=== PATIENT | female | born 1985 | race Caucasian/White ===

== ENCOUNTER → 2022-04-29 10:28 | Outpatient (CLI) | payer OTHER, SELFPAY ==
[2022-04-29 11:27] LABS: Basophils % 0.9 % (0.1-2.0); Eosinophils # 0.2 K/mm3 (0.0-0.4); Hematocrit 37.2 % (37.0-47.0); Hemoglobin 12.5 g/dL (12.2-16.2); Lymphocytes % 42.1 % (10-50); Mean Corpuscular HGB Conc 33.6 g/dL (31.8-35.4); Mean Corpuscular Hemoglobin 29.6 pg (27.0-31.2); Mean Platelet Volume 10.1 fl (7.4-10.4); Monocytes # 0.3 K/mm3 (0.1-1.0); Monocytes % 6.5 % (1.7-9.3); Neutrophils # 2.2 K/mm3 (1.8-7.8); Neutrophils % 46.5 % (37.0-80.0); Platelet Count 207 K/mm3 (142-424); Red Blood Count 4.23 M/mm3 (4.20-5.40); White Blood Count 4.7 K/mm3 (4.8-10.8)
[2022-04-29 12:31] LABS: Alanine Aminotransferase 14 U/L (12-78); Albumin Level 4.2 g/dl (3.5-5.0); Albumin/Globulin Ratio 1.7 (1.1-1.8); Alkaline Phosphatase 66 U/L (38-126); Anion Gap 10.3 mEq/L (5-15); Aspartate Amino Transferase 21 U/L (14-36); Bilirubin,Total 0.5 mg/dl (0.2-1.3); Blood Urea Nitrogen 9 mg/dl (7-17); Calcium 8.5 mg/dl (8.4-10.2); Carbon Dioxide 25 mmol/L (22.0-30.0); Chloride 108 mmol/L (98-107); Estimated Glomerular Filt Rate 112 ml/min (>60); GFR (African American) 136 ML/MIN (>60); Globulin 2.5 g/dL (1.3-3.2); Glucose 80 mg/dl (74-100); Potassium 3.3 mmoL/L (3.5-5.1); Sodium 140 mmol/L (136-145); Total Protein,Serum 6.7 g/dl (6.3-8.2)
[2022-04-29 12:48] LABS: HCG,Quantitative < 2 mIU/ml (0-5.42)
== END ==
LOC: LAB 10:29
PROVIDERS: PCP Pediatrics; Visit Provider Obstetrics & Gynecology
DX: Z01.812 Encounter for preprocedural laboratory examination (principal); N94.6 Dysmenorrhea, unspecified
CPT/HCPCS: 36415; 80053; 84702; 85025

== ENCOUNTER 2022-05-05 06:04 | Day surgery (SDC) | payer OTHER, SELFPAY ==
[2022-05-01 10:12] VITALS: BMI 20.2
[2022-05-05] VITALS (10 sets, daily range): BP systolic 116–138; BP diastolic 64–83; PULSE 74–94; RESP 12–18; TEMP 36.1–43; O2SAT 100
--- NOTE | 2022-05-05 06:54 | EXP.ANES.CKL ---
[facility] Disclaimer: The information contained in this section may have been updated after the patient was seen, as this information can be updated by other users. Medical History Anxiety Bipolar 1 disorder Surgical History History of bilateral fallopian tube excision History of bilateral tubal ligation History of dilatation and curettage History of repair of hiatal hernia History of shoulder surgery Family History Other Alcoholism Asthma Cancer Coronary artery disease FHx: mental illness Heart attack Hypertension Substance abuse Thyroid disorder Social History Smoking Status: Never smoker alcohol intake: never substance use type: denies use current occupational status: employed Travel in the last 8 weeks: None [facility] Anesthesia Checklist Patient Identification Patient Identification: Arm Band, Family and Guardian Structural Data Admitted From: Home Planned Operative Procedure/s: D & C, Hysteroscopy, Myosure, Novasure Consent for Planned Operative Procedure(s) Verified: Yes Verified Documents: Surgical Consent and History and Physical NPO Status Verified Time NPO: 00:00 Additional verifications Patient : No Anesthesia Reactions: No Hx Blood Transfusions: No Blood Transfusion Reaction: No Cephalosporin Allergy: No Previous Colonoscopy: Yes Airway Assessment C-Spine Mobility Assessed: Yes TMJ Mobility Assessed: Yes Neurological Assessment Level of Consciousness: Awake, Alert, Appropriate and Follows Commands Hx Seizures: No Numbness or tingling in extremities: No Anesthesia Plan Anesthesia Risk discussed: Yes ASA Class: II Anesthesia Type: General Preoperative Comments Pre-Operative Comments: Phenergan causes hallucinations. Requests no post operative pain medications. PONV.
--- NOTE | 2022-05-05 08:36 | EXP.ANES.I ---
[facility] Anesthesia Record Part I Anesthesia Record I Intake, IV Amount: 900 Estimated blood loss (mL): 5 Urine output (mL): 50 Blood Products used (#): none Blood Pressure: 116/64 SaO2: 100 Pulse Rate: 94 Respiratory Rate: 12 Temperature: 97 F Patient is:: Drowsy and Stable Stable to PACU at:: 08:32
--- NOTE | 2022-05-05 08:43 | EXP.OP.NOTE ---
Date of procedure: 05/05/22 Pre-op Diagnosis:: 1. Heavy menstrual bleeding 2. Dysfunctional uterine bleeding 3. Previous tubal ligation Post-op Diagnosis:: same Procedure performed:: 1. D&C Hysteroscopy 2. Novasure Endometrial Ablation Surgeon:: Janna Ortega MD WORKFORCE DEVELOPMENT ASSISTANT:: Other Anesthesia: GETA Estimated blood loss (mL): 5 Operative findings:: Diffuse, proliferative endometrium No polyps or fibroids visualized within cavity Operative note:: The patient was taken to the OR where general anesthesia was administered without difficulty. She was prepped/draped in the normal sterile fashion in supine position. The cervix was dilated until hysteroscope could be accomodated. The hysteroscope was introduced through the cervix into the uterus and the cavity surveyed. Diffuse proliferative endometrial tissue was observed within the cavity, but no polyps or fibroids were present. Sharp curettage was performed and the specimen sent for pathology. The Novasure device was introduced into the uterus. The cavity length was measured at 4.5cm and width at 2.8cm, and the cavity assessment was successful. The Novasure was deployed and the endometrial ablation was completed in 81 seconds, and without complication. All instruments were removed from her vagina, she was awakened from anesthesia and taken to PACU in stable condition. Condition: stable Disposition: PACU Specimens:: Endometrial curettings Complications:: None
--- NOTE | 2022-05-05 13:19 | P.PNANES_ITS ---
[facility] Anesthesia Record Part II Anesthesia Record Part II Discharge Time: 09:02 Destination: Surgical Day Care (OP Surgery) PACU nurse assessment reviewed?: Yes Patient Condition:: Good Anesthesia Complications:: None Swallowing reflex intact?: Yes Cyanosis?: No Blood Pressure: 125/76 Pulse Rate: 75 Temperature: 98.1 F Mental Status: Alert & Oriented Pain level:: 0 Nausea and/or vomitting:: None Intake, IV Amount: 0
== END 2022-05-05 09:32 | disposition home or self-care (01) ==
PROVIDERS: PCP Pediatrics; Visit Provider Obstetrics & Gynecology
PROC: (CPT 58563; principal; 2022-05-05 07:30)
DX: N92.0 Excessive and frequent menstruation with regular cycle (principal); N93.8 Other specified abnormal uterine and vaginal bleeding; Z98.51 Tubal ligation status
CPT/HCPCS: 58563; 96374; J2405

== ENCOUNTER 2022-12-04 10:00 | Emergency (ER) | payer OTHER, SELFPAY ==
--- NOTE | 2022-12-04 10:08 | XR_ITS ---
FINAL REPORT CLINICAL HISTORY: Left wrist pain, piece of wood fell onto hand/wrist COMPARISON: None FINDINGS: LEFT WRIST Three views demonstrate no acute fracture or dislocation. The visualized joint spaces are normally aligned. The soft tissues are unremarkable. IMPRESSION: No acute bony abnormality. Reviewed, Interpreted and Dictated by Johny Phillips III, MD Transcribed by Jacqueline Gooden Authenticated and [facility]
--- NOTE | 2022-12-04 10:08 | XR_ITS ---
FINAL REPORT CLINICAL HISTORY: Left hand pain, piece of wood fell onto hand/wrist, pain fourth and fifth MCP joints COMPARISON: None FINDINGS: LEFT HAND: 3 views of the left hand were obtained. There is no acute fracture or dislocation. Visualized joint spaces are normally aligned. Soft tissues are unremarkable. IMPRESSION: No acute bony abnormality. Reviewed, Interpreted and Dictated by Johny Phillips III, MD Transcribed by Jacqueline Gooden Authenticated and [facility]
[2022-12-04 10:35] VITALS: BP 121/78; PULSE 78; RESP 18; TEMP 36.9; O2SAT 100; BMI 20.6
--- NOTE | 2022-12-04 10:40 | EXP.UTC ---
Discharge Plan Disposition Patient Disposition: Home, Self-Care Condition: Good Prescriptions Prescriptions: New ibuprofen [ibuprofen] 600 mg tablet 600 mg PO Q6HP PRN (Reason: Mild Pain) Qty: 30 0RF No Action buspirone 7.5 mg tablet 7.5 mg PO DAILY levothyroxine 75 mcg tablet 75 mcg PO DAILY Referrals Follow up/Referrals: Mehdi Begum DO [Staff Physician] - See instructions Juan Hameed [Primary Care Provider] - See instructions Activity Restrictions/Add. Instructions Additional Instructions/Restrictions: Rest the extremity, apply ice for 15 minutes as tolerated three or four times per day, Wear the tootie wrap for compression, Elevate the extremity as tolerated while you are resting. Take ibuprofen for pain. I sent in a prescription to your pharmacy. Follow up with Dr. Begum (orthopedics) if you continue to have symptoms. I put in a referral but you need to call his office and schedule an appointment. Follow up with your regular doctor. GO TO THE ER FOR ANY WORSENING SYMPTOMS Clinical Impressions Clinical Impression: Crushing injury of left hand, Contusion of left hand Stand Alone Forms Stand Alone Forms: Work/School Release Instructions Patient Instructions: DI for Crush Injury Discharge ED Provider: Claudy Martinez [facility] General Stated complaint: [id number] left hand injury, home accident Time Seen by Provider: 12/04/22 10:39 History of Present Illness Provider Complaint: She state that her child accidentally dropped a piece of wood on the patients right hand. This happened 3 days ago. Since then she has had right hand pain, swelling and bruising. Related Data Home Medications Medication Instructions Recorded Confirmed buspirone 7.5 mg tablet 7.5 mg PO DAILY . 04/29/22 05/29/22 levothyroxine 75 mcg tablet 75 mcg PO DAILY thyroid 12/04/22 12/04/22 Previous Rx's Medication Instructions Recorded ibuprofen 600 mg tablet 600 mg PO Q6HP PRN Mild Pain #30 12/04/22 tabs Allergies Allergy/AdvReac Type Severity Reaction Status Date / Time cetirizine [From Zyrtec] Allergy Unknown Verified 12/04/22 10:41 erythromycin base Allergy Unknown RASH/HIVES Verified 12/04/22 10:41 [ERYTHROMYCIN BASE] Penicillins [PENICILLINS] Allergy Unknown I-HIVES Verified 12/04/22 10:41 promethazine [From PHENERGAN] Allergy Unknown HALLUCINATI Verified 12/04/22 10:41 ONS PFSH PFS Disclaimer: The information contained in this section may have been updated after the patient was seen, as this information can be updated by other users. Medical History (Updated 12/04/22 @ 11:39 by Claudy Martinez APRN) Anxiety Bipolar 1 disorder Surgical History History of bilateral fallopian tube excision History of bilateral tubal ligation History of dilatation and curettage History of repair of hiatal hernia History of shoulder surgery Status post endometrial ablation Family History Other Alcoholism Asthma Cancer Coronary artery disease FHx: mental illness Heart attack Hypertension Substance abuse Thyroid disorder Social History Smoking Status: Never smoker alcohol intake: never substance use type: denies use current occupational status: employed Travel in the last 8 weeks: None ROS Obtained: Yes All systems reviewed & no additional complaints except as documented Constitutional Constitutional: Denies chills and Denies fever(s) Eyes Eyes: Denies eye discharge ENT Ears, Nose, Mouth, and Throat: Denies dizziness, Denies otalgia and Denies sore throat Cardiovascular Cardiovascular: Denies chest pain Respiratory Respiratory: Denies shortness of breath, Denies chest congestion, Denies cough, Denies stridor and Denies wheezing Gastrointestinal Gastrointestingal: Denies nausea or vomiting Musculos
[2022-12-04 11:48] VITALS: BP 121/78; PULSE 78; RESP 18; TEMP 36.9; O2SAT 100
== END 2022-12-04 11:48 | disposition home or self-care (01) ==
PROVIDERS: Emergency Provider Nurse Practitioner Family; PCP Pediatrics
DX: S67.22XA Crushing injury of left hand, initial encounter (principal); S60.222A Contusion of left hand, initial encounter; F31.9 Bipolar disorder, unspecified; F41.9 Anxiety disorder, unspecified; W23.0XXA Caught, crushed, jammed, or pinched between moving objects, initial encounter
CPT/HCPCS: 73110; 73130; 99204; 99212; G0463

== ENCOUNTER 2022-12-14 05:05 | Emergency (ER) | payer OTHER, SELFPAY ==
[2022-12-14 05:07] VITALS: BP 127/84; PULSE 88; RESP 16; O2SAT 100; BMI 19.1
[2022-12-14 05:12] VITALS: BP 127/84; PULSE 83; RESP 20; O2SAT 100
[2022-12-14 05:30] VITALS: BP 111/75; PULSE 81; RESP 18; O2SAT 99
--- NOTE | 2022-12-14 05:33 | CT_ITS ---
PROCEDURE INFORMATION: Exam: CT Maxillofacial With Contrast Exam date and time: 12/14/2022 6:38 AM Age: 37 years old Clinical indication: Face pain and jaw pain and maxilla pain; Patient HX: Right sided facial pain and swelling; Additional info: Facial pain/swelling, abscess TECHNIQUE: Imaging protocol: Computed tomography of the face with contrast. Radiation optimization: All CT scans at this facility use at least one of these dose optimization techniques: automated exposure control; mA and/or kV adjustment per patient size (includes targeted exams where dose is matched to clinical indication); or iterative reconstruction. Contrast material: ISOVUE; Contrast volume: 100 ml; Contrast route: IV; REPORTING DATA: Count of CT and Cardiac NM exams in prior 12 months: This patient has received 0 known CTs and 0 known cardiac nuclear medicine studies in the 12 months prior to the current study. COMPARISON: No relevant prior studies available. FINDINGS: Orbital cavities: Orbits are normal. Globes are unremarkable. Bones/joints: No acute fracture. Paranasal sinuses: Mucosal thickening noted in the floor of the right maxillary antrum. Soft tissues: There is soft tissue swelling and infiltration of the right pre maxillary subcutaneous fat. There is associated periapical lucency surrounding the roots of the right upper 1st molar. There is no cortical destruction however there is an 8.5 x 4.2 x 8.5 mm subperiosteal collection adjacent to the right maxilla. IMPRESSION: Odontogenic right facial cellulitis and small adjacent subperiosteal collection.
--- NOTE | 2022-12-14 05:56 | HMH.EDGENADL ---
Discharge Plan Disposition Patient Disposition: Home, Self-Care Prescriptions Prescriptions: New ibuprofen 800 mg tablet 800 mg PO Q8H PRN (Reason: pain) Qty: 20 0RF ondansetron 4 mg tablet,disintegrating 4 mg PO Q8H PRN (Reason: nausea and vomiting) 4 Days Qty: 12 0RF clindamycin HCl 150 mg capsule 450 mg PO Q8H 7 Days Qty: 63 0RF No Action buspirone 7.5 mg tablet 7.5 mg PO DAILY levothyroxine 75 mcg tablet 75 mcg PO DAILY ibuprofen [ibuprofen] 600 mg tablet 600 mg PO Q6HP PRN (Reason: Mild Pain) Qty: 30 0RF Referrals Follow up/Referrals: Juan Hameed [Primary Care Provider] - See instructions Activity Restrictions/Add. Instructions Additional Instructions/Restrictions: Please follow-up with an oral surgeon or your dentist early next week return with any worsening symptoms. Clinical Impressions Clinical Impression: Dental abscess, Cellulitis of face Discharge ED Provider: Piero Ortega General Adult HPI <Maricruz Mar DO - Last Filed: 12/14/22 07:33> General Chief complaint: PAIN Stated complaint: swollen face Time Seen by Provider: 12/14/22 05:30 Mode of Arrival: Ambulatory Source of Information: Patient Limitations: No Limitations Description of Symptoms (Recalled from ER Triage Doc. by RN): Patient reports thinking she may have sinusitis so she took some of her sons Cipro and then woke up this morning with right sided facial swelling and pain. History of Present Illness HPI narrative: This patient is a 37-year-old female presenting to the emergency department with concern for right-sided sinus/facial pain and swelling. She notes that she first noticed it yesterday, so she started taking some ciprofloxacin that was leftover at home. She was concerned that she may have a sinus infection, however her face is now swollen on the right side and she feels a pocket of fluid on her right upper gums. She denies any history of dental issues in the past and states that she does follow regularly with a dentist. She denies any fevers, chills, nausea, vomiting, or other systemic symptoms. She denies any history of any medical problems otherwise. She is allergic to penicillin. Related Data Home Medications Medication Instructions Recorded Confirmed buspirone 7.5 mg tablet 7.5 mg PO DAILY . 04/29/22 05/29/22 levothyroxine 75 mcg tablet 75 mcg PO DAILY thyroid 12/04/22 12/04/22 Previous Rx's Medication Instructions Recorded ibuprofen 600 mg tablet 600 mg PO Q6HP PRN Mild Pain #30 12/04/22 tabs clindamycin HCl 150 mg capsule 450 mg PO Q8H 7 days #63 caps 12/14/22 ibuprofen 800 mg tablet 800 mg PO Q8H PRN pain #20 tabs 12/14/22 ondansetron 4 mg disintegrating 4 mg PO Q8H PRN nausea and 12/14/22 tablet vomiting 4 days #12 tabs Allergies Allergy/AdvReac Type Severity Reaction Status Date / Time cetirizine [From Zyrtec] Allergy Unknown Verified 12/04/22 10:41 erythromycin base Allergy Unknown RASH/HIVES Verified 12/04/22 10:41 [ERYTHROMYCIN BASE] Penicillins [PENICILLINS] Allergy Unknown I-HIVES Verified 12/04/22 10:41 promethazine [From PHENERGAN] Allergy Unknown HALLUCINATI Verified 12/04/22 10:41 ONS PFS <Maricruz Mar DO - Last Filed: 12/14/22 07:33> PFS Disclaimer: The information contained in this section may have been updated after the patient was seen, as this information can be updated by other users. Medical History Anxiety Bipolar 1 disorder Surgical History History of bilateral fallopian tube excision History of bilateral tubal ligation History of dilatation and curettage History of repair of hiatal hernia History of shoulder surgery Status post endometrial ablation Family History Other Alcoholism Asthma Cancer Coronary artery disease FHx: mental illness Heart attack
[2022-12-14 06:10] LABS: Basophils % 0.4 % (0.1-2.0); Eosinophils # 0.2 K/mm3 (0.0-0.4); Eosinophils % 2.5 % (0.1-12.0); Hematocrit 41.4 % (37.0-47.0); Hemoglobin 13.2 g/dL (12.2-16.2); Lymphocytes # 1.5 K/mm3 (0.7-4.5); Lymphocytes % 18.2 % (10-50); Mean Corpuscular HGB Conc 31.9 g/dL (31.8-35.4); Mean Corpuscular Hemoglobin 29.1 pg (27.0-31.2); Mean Corpuscular Volume 91.4 fl (81-99); Mean Platelet Volume 9.9 fl (7.4-10.4); Monocytes # 0.5 K/mm3 (0.1-1.0); Monocytes % 6.5 % (1.7-9.3); Neutrophils # 6.1 K/mm3 (1.8-7.8); Neutrophils % 72.4 % (37.0-80.0); Platelet Count 218 K/mm3 (142-424); Red Blood Count 4.53 M/mm3 (4.20-5.40); Red Cell Distribution Width 13.6 % (11.5-17.5); White Blood Count 8.4 K/mm3 (4.8-10.8)
[2022-12-14 06:12] LABS: Anion Gap 8.8 mEq/L (5-15); Blood Urea Nitrogen 10 mg/dl (7-17); Calcium 8.7 mg/dl (8.4-10.2); Carbon Dioxide 29 mmol/L (22.0-30.0); Chloride 106 mmol/L (98-107); Creatinine Clearance Estimated 96 mL/min (50-200); Estimated Glomerular Filt Rate 94 ml/min (>60); GFR (African American) 114 ML/MIN (>60); Glucose 103 mg/dl (74-100); Potassium 3.8 mmoL/L (3.5-5.1); Sodium 140 mmol/L (136-145)
[2022-12-14 06:31] LABS: HCG Qualitative, Serum Negative (Negative)
--- NOTE | 2022-12-14 07:31 | PC.NURSE ---
Dr. Ortega and Dr. Mar at
[2022-12-14 08:15] VITALS: BP 108/74; PULSE 63; RESP 16; TEMP 36.7; O2SAT 100
== END 2022-12-14 08:15 | disposition home or self-care (01) ==
PROVIDERS: Emergency Medicine; Emergency Provider Student in an Organized Health Care Education/Training Program; PCP Pediatrics
DX: L03.211 Cellulitis of face (principal); F31.9 Bipolar disorder, unspecified; F41.9 Anxiety disorder, unspecified
CPT/HCPCS: 41008; 10060; 70487; 80048; 84703; 85025; 96374; 96375; 99285; J0131; J2405; Q9967

== ENCOUNTER 2022-12-14 15:54 | Emergency (ER) | payer OTHER, SELFPAY ==
[2022-12-14 15:56] VITALS: BP 111/70; PULSE 71; RESP 16; TEMP 36.7; O2SAT 100; BMI 19.1
--- NOTE | 2022-12-14 16:23 | PC.NURSE ---
Dr. Solares at [facility]
--- NOTE | 2022-12-14 16:53 | HMH.EDGENADL ---
Discharge Plan Disposition Patient Disposition: Home, Self-Care Prescriptions Prescriptions: New sulfamethoxazole-trimethoprim [Bactrim DS] 800-160 mg tablet 1 tab PO BID 7 Days Qty: 14 0RF No Action buspirone 7.5 mg tablet 7.5 mg PO DAILY levothyroxine 75 mcg tablet 75 mcg PO DAILY ibuprofen [ibuprofen] 600 mg tablet 600 mg PO Q6HP PRN (Reason: Mild Pain) Qty: 30 0RF ibuprofen 800 mg tablet 800 mg PO Q8H PRN (Reason: pain) Qty: 20 0RF ondansetron 4 mg tablet,disintegrating 4 mg PO Q8H PRN (Reason: nausea and vomiting) 4 Days Qty: 12 0RF clindamycin HCl 150 mg capsule 450 mg PO Q8H 7 Days Qty: 63 0RF Referrals Follow up/Referrals: Juan Hameed [Primary Care Provider] - See instructions Activity Restrictions/Add. Instructions Additional Instructions/Restrictions: Call your family doctor to establish care for this visit to the emergency department and schedule follow-up within 48 hours to ensure improvement. If you have any worsening of your condition or any other concerning signs or symptoms, return to the emergency department or your primary care doctor for further evaluation. Clinical Impressions Clinical Impression: Cellulitis and abscess of face Discharge ED Provider: Harvey Solares General Adult HPI General Chief complaint: Dental/Oral Stated complaint: Dential Pain Time Seen by Provider: 12/14/22 15:58 Mode of Arrival: Ambulatory Source of Information: Patient Limitations: No Limitations Description of Symptoms (Recalled from ER Triage Doc. by RN): pt reports L sided dental pain. Pt was in ER earlier this date, abscess drained during ER visit. Pt reports pain and swelling are more spread out on L side of face now. History of Present Illness HPI narrative: 37-year-old female with no relevant medical history presenting with facial abscess and swelling. Patient states that she was seen earlier today because of this facial swelling. No difficulty breathing or swallowing. Had it drained today in the emergency department and discharged with clindamycin. Came back for swelling and pain. Related Data Home Medications Medication Instructions Recorded Confirmed buspirone 7.5 mg tablet 7.5 mg PO DAILY . 04/29/22 05/29/22 levothyroxine 75 mcg tablet 75 mcg PO DAILY thyroid 12/04/22 12/04/22 Previous Rx's Medication Instructions Recorded ibuprofen 600 mg tablet 600 mg PO Q6HP PRN Mild Pain #30 12/04/22 tabs clindamycin HCl 150 mg capsule 450 mg PO Q8H 7 days #63 caps 12/14/22 ibuprofen 800 mg tablet 800 mg PO Q8H PRN pain #20 tabs 12/14/22 ondansetron 4 mg disintegrating 4 mg PO Q8H PRN nausea and 12/14/22 tablet vomiting 4 days #12 tabs sulfamethoxazole 800 1 tab PO BID 7 days #14 tabs 12/14/22 mg-trimethoprim 160 mg tablet (Bactrim DS) Allergies Allergy/AdvReac Type Severity Reaction Status Date / Time cetirizine [From Zyrtec] Allergy Unknown Verified 12/04/22 10:41 erythromycin base Allergy Unknown RASH/HIVES Verified 12/04/22 10:41 [ERYTHROMYCIN BASE] Penicillins [PENICILLINS] Allergy Unknown I-HIVES Verified 12/04/22 10:41 promethazine [From PHENERGAN] Allergy Unknown HALLUCINATI Verified 12/04/22 10:41 ONS [facility] PFS Disclaimer: The information contained in this section may have been updated after the patient was seen, as this information can be updated by other users. Medical History Anxiety Bipolar 1 disorder Surgical History History of bilateral fallopian tube excision History of bilateral tubal ligation History of dilatation and curettage History of repair of hiatal hernia History of shoulder surgery Status post endometrial ablation Family History Other Alcoholism Asthma Cancer Coronary artery disease FHx: mental illness Heart attack Hypertension Subs
--- NOTE | 2022-12-14 16:53 | PC.NURSE ---
Rounded on patient; [place] provided patient a warm blanket. Call light within reach
[2022-12-14 16:56] LABS: Basophils % 0.3 % (0.1-2.0); Eosinophils # 0.1 K/mm3 (0.0-0.4); Eosinophils % 1.6 % (0.1-12.0); Hematocrit 38.3 % (37.0-47.0); Hemoglobin 12.1 g/dL (12.2-16.2); Lymphocytes # 1.7 K/mm3 (0.7-4.5); Lymphocytes % 18.3 % (10-50); Mean Corpuscular HGB Conc 31.7 g/dL (31.8-35.4); Mean Corpuscular Hemoglobin 28.9 pg (27.0-31.2); Mean Corpuscular Volume 91.4 fl (81-99); Mean Platelet Volume 9.8 fl (7.4-10.4); Monocytes # 0.7 K/mm3 (0.1-1.0); Monocytes % 7.3 % (1.7-9.3); Neutrophils # 6.7 K/mm3 (1.8-7.8); Neutrophils % 72.6 % (37.0-80.0); Platelet Count 214 K/mm3 (142-424); Red Blood Count 4.19 M/mm3 (4.20-5.40); Red Cell Distribution Width 13.7 % (11.5-17.5); White Blood Count 9.2 K/mm3 (4.8-10.8)
[2022-12-14 17:00] VITALS: BP 106/63; PULSE 75; RESP 20; O2SAT 98
[2022-12-14 17:04] LABS: Chloride 106 mmol/L (98-107); Potassium 3.6 mmoL/L (3.5-5.1); Sodium 141 mmol/L (136-145)
[2022-12-14 17:07] LABS: Anion Gap 9.6 mEq/L (5-15); Blood Urea Nitrogen 9 mg/dl (7-17); Carbon Dioxide 29 mmol/L (22.0-30.0); Creatinine Clearance Estimated 96 mL/min (50-200); Estimated Glomerular Filt Rate 94 ml/min (>60); GFR (African American) 114 ML/MIN (>60)
[2022-12-14 17:08] LABS: Calcium 8.3 mg/dl (8.4-10.2); Glucose 109 mg/dl (74-100)
[2022-12-14 17:30] VITALS: BP 105/67; PULSE 66; RESP 20; O2SAT 98
--- NOTE | 2022-12-14 17:49 | PC.NURSE ---
Rounded on pt. No needs voiced at this time. Pt resting.
[2022-12-14 18:13] VITALS: BP 103/66; PULSE 66; RESP 16; TEMP 36.6; O2SAT 100
== END 2022-12-14 18:16 | disposition home or self-care (01) ==
PROVIDERS: Emergency Provider Emergency Medicine; PCP Pediatrics
DX: L03.211 Cellulitis of face (principal); L02.01 Cutaneous abscess of face; F31.9 Bipolar disorder, unspecified; F41.9 Anxiety disorder, unspecified
CPT/HCPCS: 80048; 85025; 96374; 96375; 99284; J0131; J2405

== ENCOUNTER 2023-02-16 10:48 | Emergency (ER) | payer OTHER, SELFPAY ==
[2023-02-16 11:30] VITALS: BP 128/83; PULSE 110; RESP 18; TEMP 37; O2SAT 99; BMI 20.8
--- NOTE | 2023-02-16 11:43 | EXP.UTC ---
Discharge Plan Disposition Patient Disposition: Home, Self-Care Condition: Good Prescriptions Prescriptions: New methylprednisolone 4 mg Tablets,Dose Pack 4 mg PO DIRECTED Qty: 21 0RF mwvbrahvzwnhyzq-rdvblyyge-TM [Bromfed DM] 2-30-10 mg/5 mL Syrup 5 ml PO Q6H PRN (Reason: Cough) Qty: 240 0RF cefdinir 300 mg capsule 300 mg PO BID Qty: 20 0RF No Action buspirone 7.5 mg tablet 7.5 mg PO DAILY levothyroxine 75 mcg tablet 75 mcg PO DAILY ibuprofen [ibuprofen] 600 mg tablet 600 mg PO Q6HP PRN (Reason: Mild Pain) Qty: 30 0RF sulfamethoxazole-trimethoprim [Bactrim DS] 800-160 mg tablet 1 tab PO BID 7 Days Qty: 14 0RF ibuprofen 800 mg tablet 800 mg PO Q8H PRN (Reason: pain) Qty: 20 0RF ondansetron 4 mg tablet,disintegrating 4 mg PO Q8H PRN (Reason: nausea and vomiting) 4 Days Qty: 12 0RF clindamycin HCl 150 mg capsule 450 mg PO Q8H 7 Days Qty: 63 0RF Referrals Follow up/Referrals: Juan Hameed [Primary Care Provider] - See instructions Activity Restrictions/Add. Instructions Additional Instructions/Restrictions: Drink plenty of fluids. Take tylenol or ibuprofen for pain or fever. Take the medications as directed. Follow up with your regular doctor. GO TO THE ER FOR ANY WORSENING SYMPTOMS Clinical Impressions Clinical Impression: Strep throat Stand Alone Forms Stand Alone Forms: Work/School Release Instructions Patient Instructions: Strep Throat, DI for Strep Throat Discharge ED Provider: Claudy Martinez [facility] General Stated complaint: sore throat, cough, nasal congestion, sore chest Time Seen by Provider: 02/16/23 11:43 History of Present Illness Provider Complaint: She states that she has had sore throat, malaise, fever, and a cough for the past 2 days. Related Data Home Medications Medication Instructions Recorded Confirmed buspirone 7.5 mg tablet 7.5 mg PO DAILY . 04/29/22 02/16/23 levothyroxine 75 mcg tablet 75 mcg PO DAILY thyroid 12/04/22 02/16/23 albuterol sulfate 90 mcg/actuation See Rx Instructions .Route .COMPLEX 02/16/23 02/16/23 aerosol inhaler mirtazapine 15 mg tablet 15 mg PO DAILY 02/16/23 02/16/23 omeprazole 20 mg capsule,delayed 20 mg PO DAILY 02/16/23 02/16/23 release Previous Rx's Medication Instructions Recorded dqyzqpeugtwsyve-uzdoautbtwjxwfa-UE 5 ml PO Q6H PRN Cough #240 mL 02/16/23 2 mg-30 mg-10 mg/5 mL oral syrup (Bromfed DM) cefdinir 300 mg capsule 300 mg PO BID #20 caps 02/16/23 methylprednisolone 4 mg tablets in 4 mg PO DIRECTED #21 tabs 02/16/23 a dose pack Allergies Allergy/AdvReac Type Severity Reaction Status Date / Time cetirizine [From Zyrtec] Allergy Unknown Verified 12/04/22 10:41 erythromycin base Allergy Unknown RASH/HIVES Verified 12/04/22 10:41 [ERYTHROMYCIN BASE] Penicillins [PENICILLINS] Allergy Unknown I-HIVES Verified 12/04/22 10:41 promethazine [From PHENERGAN] Allergy Unknown HALLUCINATI Verified 12/04/22 10:41 ONS PFS PFS Disclaimer: The information contained in this section may have been updated after the patient was seen, as this information can be updated by other users. 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
[2023-02-16 11:58] LABS: UTC Strep Screen (Rapid) Positive (Negative)
[2023-02-16 12:21] VITALS: BP 128/83; PULSE 110; RESP 18; TEMP 37; O2SAT 99
== END 2023-02-16 12:20 | disposition home or self-care (01) ==
PROVIDERS: Emergency Provider Nurse Practitioner Family; PCP Pediatrics
DX: J02.0 Streptococcal pharyngitis (principal); R50.9 Fever, unspecified; R07.0 Pain in throat; R05.9 Cough, unspecified; R09.81 Nasal congestion; R53.81 Other malaise
CPT/HCPCS: 87880; 99212; 99214; G0463

== ENCOUNTER 2023-09-20 18:06 | Emergency (ER) | payer OTHER, SELFPAY ==
[2023-09-20 18:20] VITALS: BP 140/92; PULSE 79; RESP 18; TEMP 36.6; O2SAT 99; BMI 22.7
--- NOTE | 2023-09-20 18:20 | XR_ITS ---
PROCEDURE INFORMATION: Exam: XR Right Wrist Exam date and time: 09/20/2023 6:14 PM Age: 38 years old Clinical indication: Pain; Wrist; Right TECHNIQUE: Imaging protocol: Radiologic exam of the right wrist. Views: 3 or more views. COMPARISON: CR Hand R 09/20/2023 6:13 PM FINDINGS: Bones/joints: The osseous structures appear intact with no evidence of acute fracture, dislocation, or malalignment. Joint spaces are preserved. No abnormal bone density or destructive lesions are noted. Soft tissues: Soft tissues appear unremarkable. IMPRESSION: At the time of imaging, there is no evidence for acute osseous abnormalities.
--- NOTE | 2023-09-20 18:20 | XR_ITS ---
PROCEDURE INFORMATION: Exam: XR Right Hand Exam date and time: 09/20/2023 6:13 PM Age: 38 years old Clinical indication: Pain; Hand; Right; Additional info: Pain. 5th metacarpal TECHNIQUE: Imaging protocol: Radiologic exam of the right hand. Views: 3 or more views. COMPARISON: No relevant prior studies available. FINDINGS: Bones/joints: The osseous structures appear intact with no evidence of acute fracture, dislocation, or malalignment. Joint spaces are preserved. No abnormal bone density or destructive lesions are noted. Soft tissues: Soft tissues appear unremarkable. IMPRESSION: At the time of imaging, there is no evidence for acute osseous abnormalities.
--- NOTE | 2023-09-20 18:35 | ED_ITS ---
Discharge Plan Disposition Patient Disposition: Home, Self-Care Condition: Good Prescriptions Prescriptions: No Action buspirone 7.5 mg tablet 7.5 mg PO DAILY levothyroxine 75 mcg tablet 75 mcg PO DAILY omeprazole 20 mg capsule,delayed release(DR/EC) 20 mg PO DAILY Patient Comments: TAKE 1 CAPSULE BY MOUTH EVERY DAY mirtazapine 15 mg tablet 15 mg PO DAILY Patient Comments: TAKE 1 TABLET BY MOUTH EVERY DAY AT NIGHT albuterol sulfate 90 mcg/actuation HFA aerosol inhaler See Rx Instructions .ROUTE .COMPLEX Patient Comments: INHALE 2 PUFFS EVERY 4 (FOUR) HOURS NEEDED FOR SHORTNESS OF AIR OR WHEEZING Rx Instructions: INHALE 2 PUFFS EVERY 4 (FOUR) HOURS NEEDED FOR SHORTNESS OF AIR OR WHEEZING Referrals Follow up/Referrals: Mehdi Begum DO [Staff Physician] - See instructions Juan Hameed [Primary Care Provider] - See instructions Activity Restrictions/Add. Instructions Additional Instructions/Restrictions: Rest the extremity, apply ice for 15 minutes as tolerated three or four times per day, Wear the tootie wrap for compression, Elevate the extremity as tolerated while you are resting. Take ibuprofen for pain. Follow up with Dr. Begum (orthopedics). I put in a referral but you need to call his office and schedule an appointment. Follow up with your regular doctor. GO TO THE ER FOR ANY WORSENING SYMPTOMS Clinical Impressions Clinical Impression: Sprain of right hand Instructions Patient Instructions: DI for Hand Injury Discharge ED Provider: Claudy Martinez [facility] [place] HPI General Stated complaint: AO06/30 RT hand inj Mode of Arrival: Ambulatory Source of Information: Patient Limitations: No Limitations Time Seen by Provider: 09/20/23 18:35 Description of Symptoms (Recalled from Triage Doc. by RN): Pt's symptoms are right hand pain. HEENT Symptoms (Recalled from RN notes): No Resp Symptoms (Recalled from RN notes): No Skin Symptoms (Recalled from RN notes): No MS Symptoms (Recalled from RN notes): Yes Functional Status (Recalled from RN notes): n/a History of Present Illness Provider Complaint: She states that she fell yesterday and came down on her right hand. She has right hand tenderness and bruising since then. She denies any other pain. Related Data Home Medications Medication Instructions Recorded Confirmed buspirone 7.5 mg tablet 7.5 mg PO DAILY . 04/29/22 09/20/23 levothyroxine 75 mcg tablet 75 mcg PO DAILY thyroid 12/04/22 09/20/23 albuterol sulfate 90 mcg/actuation See Rx Instructions .Route .COMPLEX 02/16/23 09/20/23 aerosol inhaler mirtazapine 15 mg tablet 15 mg PO DAILY 02/16/23 09/20/23 omeprazole 20 mg capsule,delayed 20 mg PO DAILY 02/16/23 09/20/23 release Allergies Allergy/AdvReac Type Severity Reaction Status Date / Time cetirizine [From Zyrtec] Allergy Unknown Verified 09/20/23 18:31 erythromycin base Allergy Unknown RASH/HIVES Verified 09/20/23 18:31 [ERYTHROMYCIN BASE] Penicillins [PENICILLINS] Allergy Unknown I-HIVES Verified 09/20/23 18:31 promethazine [From PHENERGAN] Allergy Unknown HALLUCINATI Verified 09/20/23 18:31 ONS Worker's Comp Is this a Worker's Comp case?: No [facility] Disclaimer: The information contained in this section may have been updated after the patient was seen, as this information can be updated by other users. Medical History Anxiety Bipolar 1 disorder Surgical History History of bilateral fallopian tube excision History of bilateral tubal ligation History of dilatation and curettage History of repair of hiatal hernia History of shoulder surgery Status post endometrial ablation Family History Other Alcoholism Asthma Cancer Coronary artery disease FHx: mental illness Heart attack Hypertension Substance abuse Thyroid disorder Social History Smoking Status: Never smoker alcohol intake: never substance use type: denies use current occupational status: employed Travel in the last 8 weeks: None ROS Obtained: Yes All systems reviewed & no additional complaints except as documented Constitutional Constitutional: Denies chills and Denies fever(s) Eyes Eyes: Denies eye discharge ENT Ears, Nose, Mouth, and Throat: Denies dizziness, Denies otalgia and Denies sore throat Cardiovascular Cardiovascular: Denies chest pain Respiratory Respiratory: Denies shortness of breath, Denies chest congestion, Denies cough, Denies stridor and Denies wheezing Gastrointestinal Gastrointestingal: Denies nausea or vomiting Musculoskeletal Musculoskeletal: Reports as per HPI Integumentary/Breasts Skin/Breast: Denies redness, Denies rash and Denies wounds Neurologic Neurologic: Denies dizziness and Denies paresthesias Allergic/Immunologic Allergic/Immunologic: Denies wheezing Physical Exam General General appearance: alert and in no apparent distress Head Head exam: atraumatic, normocephalic and normal inspection Eye Eye exam: Present normal appearance, PERRL and EOMI ENT ENT exam: Present normal exam, normal oropharynx, mucous membranes moist, TM's normal bilaterally and normal external ear exam Neck Neck exam: Present normal inspection, full ROM and trachea midline; Absent meningismus or lymphadenopathy Chest Chest inspection: Present normal inspection and symmetric chest wall rise; Absent tenderness Respiratory Respiratory exam: Present normal lung sounds bilaterally; Absent respiratory distress Cardiovascular Cardiovascular exam: Present regular rate and normal rhythm; Absent JVD Abdominal Exam Abdominal exam: Present soft and normal bowel sounds; Absent distention, tenderness or guarding Extremities Exam Extremities exam: Present normal capillary refill; Absent calf tenderness Expanded Upper Extremity Exam Right: Elbow exam: Present normal inspection and full ROM; Absent tenderness, pain w/ pronation/supination or tenderness over radial head Forearm/Wrist exam: Present normal inspection and full ROM; Absent tenderness, swelling, abrasion, laceration, ecchymosis, deformity, crepitus, dislocation, erythema, tenderness over anatomical snuff box or pain with axial thumb loading Hand exam: Present full ROM, tenderness, swelling and ecchymosis; Absent abrasion, laceration, skin avulsion, deformity, crepitus, dislocation, erythema, amputation, nail avulsion or subungual hematoma Hand L/R back image: 2 1. area of bruising and tenderness Neuromotor exam: Normal wrist extension, thumb opposition, thumb IP flexion, thumb adduction and fingers 2-5 abduction Neurosensory exam: Normal radial nerve, ulnar nerve and median nerve Vascular exam: Normal capillary refill, radial pulse and ulnar pulse Back Exam Back exam: Present normal inspection; Absent tenderness Neurological Exam Neurological exam: Present alert and oriented X3 Psychiatric Psychiatric exam: Present normal affect and normal mood Skin Skin exam: Present warm, dry, intact and normal color Lymphatic Lymphatic Findings: no adenopathy Medical Decision Making Medical Records Medical records reviewed: No I reviewed the patient's medical records. Jethro Inquiry Pt receiving controlled substance: No Vital Signs: 09/20/23 18:20 Temperature 97.9 F Temperature Source Oral Pulse Rate [Right Radial] 79 Respiratory Rate 18 Blood Pressure [Right Arm] 140/92 H Blood Pressure Mean [Right Arm] 108 Blood Pressure Source [Right Arm] Automatic Cuff Blood Pressure Position [Right Arm] Sitting 02 Sat by Pulse Oximetry 99 Oxygen Delivery Method Room Air Orders (Tests/Meds): ORDERS Category Date Time Status Wrist XR right minimum 3 views [XR wrist RT min 3V] Exams 09/20/23 18:20 Taken Stat XR hand RT min 3V Stat Exams 09/20/23 18:20 Taken
[2023-09-20 19:16] VITALS: BP 146/92; PULSE 79; RESP 18; TEMP 36.6; O2SAT 99
== END 2023-09-20 19:16 | disposition home or self-care (01) ==
PROVIDERS: Emergency Provider Nurse Practitioner Family; PCP Pediatrics
DX: S63.91XA Sprain of unspecified part of right wrist and hand, initial encounter (principal); M79.641 Pain in right hand; W19.XXXA Unspecified fall, initial encounter
CPT/HCPCS: 73110; 73130; 99212; 99213; G0463

== ENCOUNTER 2024-02-10 15:26 | Outpatient (CLI) | payer OTHER, SELFPAY ==
--- NOTE | 2024-02-10 15:27 | US_ITS ---
PROCEDURE: US TRANSVAGINAL CLINICAL INDICATION: AUB COMPARISON: No exams were available for comparison FINDINGS: Transvaginal sonographic images of the pelvis were obtained. UTERUS: 7.3cm x 5.0cmx 3.9 cm anteverted with a combined endometrial thickness of 3.3mm. The endometrium is difficult to visualize. The myometrium appears heterogenous and could be as a result of adenomyosis. There is a small fluid-filled area within the lower uterine segment measuring 5 mm. LEFT OVARY: 9bly6vsf2.5cm with a volume of 3.1ml. There is a follicle in the left ovary measuring 1.2 cm x 1.0 cm x 0.9 cm There are multiple small peripheral follicles. RIGHT OVARY: 2cmx 5ind2xi with a volume of 3.5ml. There are some several small peripheral follicles. Both ovaries are seen and appear normal. Doppler flow to both ovaries are seen. There is no fluid in the cul-de-sac. IMPRESSION: 1. Anteverted uterus normal in shape and size. The endometrium is 3.3 mm but difficult to visualize. There is a small 5 mm fluid-filled structure in the lower uterine segment. 2. The myometrium is heterogenous and may represent adenomyosis. 3. Both left and right ovaries are seen and both have multiple small peripheral follicles. The left ovary has a dominant follicle measuring 1.2 cm. 4. No fluid in the cul-de-sac. Dictated by: James Camacho MD 02/10/2024 16:41 James Camacho MD in OV 02/10/2024 16:41
== END 2024-02-10 23:59 | disposition home or self-care (01) ==
LOC: RAD 15:27
PROVIDERS: PCP Pediatrics; Visit Provider Obstetrics & Gynecology
DX: N93.9 Abnormal uterine and vaginal bleeding, unspecified (principal)
CPT/HCPCS: 76830

== ENCOUNTER 2024-04-06 14:43 | Outpatient (CLI) | payer OTHER, SELFPAY ==
[2024-04-06 15:12] VITALS: BMI 21.9
[2024-04-06 15:16] LABS: Basophils % 0.6 % (0.1-2.0); Eosinophils # 1.5 K/mm3 (0.0-0.4); Eosinophils % 21.7 % (0.1-12.0); Hematocrit 37.9 % (37.0-47.0); Hemoglobin 12.6 g/dL (12.2-16.2); Lymphocytes # 2.6 K/mm3 (0.7-4.5); Lymphocytes % 37.6 % (10-50); Mean Corpuscular HGB Conc 33.2 g/dL (31.8-35.4); Mean Corpuscular Hemoglobin 29.6 pg (27.0-31.2); Mean Corpuscular Volume 89.2 fl (81-99); Mean Platelet Volume 11.7 fl (7.4-10.4); Monocytes # 0.6 K/mm3 (0.1-1.0); Monocytes % 8.6 % (1.7-9.3); Neutrophils # 2.1 K/mm3 (1.8-7.8); Neutrophils % 31.4 % (37.0-80.0); Platelet Count 236 K/mm3 (142-424); Red Blood Count 4.25 M/mm3 (4.20-5.40); Red Cell Distribution Width 13.2 % (11.5-17.5); White Blood Count 6.8 K/mm3 (4.8-10.8)
[2024-04-06 15:26] LABS: Chloride 104 mmol/L (98-107); Sodium 138 mmol/L (136-145)
[2024-04-06 15:27] LABS: Potassium 3.7 mmoL/L (3.5-5.1)
[2024-04-06 15:29] LABS: Alanine Aminotransferase 14 U/L (12-78); Alkaline Phosphatase 71 U/L (38-126); Anion Gap 9.7 mEq/L (5-15); Aspartate Amino Transferase 23 U/L (14-36); Bilirubin,Total 0.3 mg/dl (0.2-1.3); Blood Urea Nitrogen 13 mg/dl (7-17); Carbon Dioxide 28 mmol/L (22.0-30.0); Creatinine Clearance Estimated 153 mL/min (50-200); Estimated Glomerular Filt Rate 138 ml/min (>60); GFR (African American) 167 ML/MIN (>60); Total Protein,Serum 6.6 g/dl (6.3-8.2)
[2024-04-06 15:30] LABS: Calcium 8.9 mg/dl (8.4-10.2); Glucose 103 mg/dl (74-100)
[2024-04-06 15:48] LABS: HCG,Quantitative < 2 mIU/ml (0-5.42)
[2024-04-06 20:14] LABS: Albumin Level 4.1 g/dl (3.5-5.0); Albumin/Globulin Ratio 1.6 (1.1-1.8); Globulin 2.5 g/dL (1.3-3.2)
== END 2024-04-06 23:59 | disposition home or self-care (01) ==
LOC: PREOP 14:44
PROVIDERS: PCP Pediatrics; Visit Provider Obstetrics & Gynecology
DX: N93.9 Abnormal uterine and vaginal bleeding, unspecified (principal)
CPT/HCPCS: 80053; 84702; 85025

== ENCOUNTER 2024-04-13 13:24 | Observation (INO) | payer OTHER, SELFPAY ==
[2024-04-11 12:58] VITALS: BMI 21.9
[2024-04-13] VITALS (22 sets, daily range): BP systolic 113–140; BP diastolic 68–91; PULSE 68–99; RESP 15–20; TEMP 36.1–38; O2SAT 97–100
[2024-04-13] MEDS: CELECOXIB 100MG CAPSULE 400 MG PO (06:28)
[2024-04-13] MEDS: ACETAMINOPHEN 500MG TAB 1000 MG PO ×3 (06:29→21:51)
[2024-04-13] MEDS: GABAPENTIN 300MG CAPSULE 600 MG (06:29)
[2024-04-13] MEDS: LACTATED RINGERS 1000ML 1,000 ML 25 ML IV (06:30)
[2024-04-13 07:14] LABS: HCG Qualitative, Serum Negative (Negative)
[2024-04-13] MEDS: ONDANSETRON 4MG/2ML VIAL 4 MG (07:35)
[2024-04-13] MEDS: GENTAMICIN SULFATE 320 MG in 0.9 % SODIUM CHLORIDE 100 ML 100 MG IV (09:16)
[2024-04-13] MEDS: CLINDAMYCIN PHOSPHATE/D5W 900 MG/50 ML PIGGYBACK 50 MG (09:16)
[2024-04-13] MEDS: LIDOCAINE 1% W/EPI 1:100,000 20ML VIAL 20 ML (09:53)
[2024-04-13] MEDS: BUPIVACAINE 0.5% W/EPI 1:200,000 30ML VIAL 30 ML IJ (09:53)
[2024-04-13] MEDS: METHYLENE BLUE 0.5% 10ML AMPULE 50 MG IV (09:53)
--- NOTE | 2024-04-13 11:22 | P.PNANES_ITS ---
[facility] Disclaimer: The information contained in this section may have been updated after the patient was seen, as this information can be updated by other users. Medical History GERD (gastroesophageal reflux disease) Hypothyroid Bipolar 1 disorder Anxiety Surgical History Status post endometrial ablation History of bilateral fallopian tube excision History of shoulder surgery History of dilatation and curettage History of repair of hiatal hernia History of bilateral tubal ligation Family History Other Alcoholism Asthma Cancer Coronary artery disease FHx: mental illness Heart attack Hypertension Substance abuse Thyroid disorder Social History (Updated 04/13/24 @ 06:34 by Jo Ann Mcgrath RN) Smoking Status: Never smoker alcohol intake: never substance use type: denies use current occupational status: employed Travel in the last 8 weeks: None Have you lived/traveled outside [place] in past 30 days?: No Contact w/someone who lives/traveled outside US past 30 days?: No Exposure to someone with infectious disease in past 14 days?: No Do you have a fever (greater than 100.4 F or 38 C)?: No Have you tested positive for COVID-19: Yes Exposed to someone with COVID-19 in past 14 days?: No Do you have a sore throat?: No Do you have a cough?: No Do you have any weakness?: No Are you experiencing any nausea/vomitting?: No Do you have any diarrhea?: No Are you experiencing any unusual bleeding?: No Do you have any muscle aches/pain?: No Do you have any abdominal pain?: No Are you experiencing loss of taste or smell?: No [facility] Anesthesia Checklist Patient Identification Patient Identification: Arm Band and Family Structural Data Admitted From: Home Planned Operative Procedure/s: lava Consent for Planned Operative Procedure(s) Verified: Yes Verified Documents: Surgical Consent and History and Physical NPO Status Verified Time NPO: 00:00 Additional verifications Patient : No Anesthesia Reactions: Yes (nausea) Hx Blood Transfusions: No Blood Transfusion Reaction: No Cephalosporin Allergy: No Previous Colonoscopy: No Airway Assessment Mallampati Score:: Class II C-Spine Mobility Assessed: Yes TMJ Mobility Assessed: Yes Dentition: Good Dentition Neurological Assessment Level of Consciousness: Awake, Alert, Appropriate and Follows Commands Hx Seizures: No Numbness or tingling in extremities: No Anesthesia Plan Anesthesia Risk discussed: Yes ASA Class: II Anesthesia Type: General
--- NOTE | 2024-04-13 11:23 | P.PNANES_ITS ---
[facility] Anesthesia Record Part I Anesthesia Record I Intake, IV Amount: 1,500 Hydration: Adequate Estimated blood loss (mL): 50 Urine output (mL): 100 Blood Products used (#): none Blood Pressure: 126/75 SaO2: 99 Pulse Rate: 96 Airway Patency: Patent Respiratory Rate: 18 Temperature: 97 F Patient is:: Drowsy and Stable Stable to PACU at:: 11:16
--- NOTE | 2024-04-13 11:43 | P.OP_ITS ---
Date of procedure: 04/13/24 Pre-op Diagnosis:: 1. Abnormal uterine bleeding 2. 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 History of tubal ligation 4. History of endometrial ablation 5. Severe right lower quadrant pain 6. Pelvic pain 7. History of hiatal hernia repair Post-op Diagnosis:: 1. Abnormal uterine bleeding 2. 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 History of tubal ligation 4. History of endometrial ablation 5. Severe right lower quadrant pain 6. Pelvic pain 7. History of hiatal hernia repair Procedure performed:: 1. Laparoscopic assisted vaginal hysterectomy 2. Right salpingo-oophorectomy 3. Knowles culdoplasty 4. Cystoscopy Surgeon:: Misty Herron DO Plant Anatomist(s):: James Camacho MD MEDICAL NUMERICAL CONTROL OPERATOR:: Claudy Miller Anesthesia: GETA Estimated blood loss (mL): 50 Operative findings:: Uterine EUA was significant for 8wk size uterus with irregular borders at the fundus. Grade 3 uterine descent was appreciated. No gross adnexal masses were appreciated. Laparoscopic exam revealed normal anatomy.? Endometriosis was noted as well as an Geovanny-Masters window. It appeared to have pelvic congestion syndrome at the bilateral ovaries. The fallopian tube remnants coming off the cornua were edematous. No ovarian masses noted. No bowel injuries on entry. There was a small area of omental adhesions superior to the umbilicus without bowel obtained. No mesh was noted on laparoscopic exam. Cystoscopy revealed brisk flow from both ureters Operative note:: Pt was taken back to the OR where GETA was obtained without difficulty. SCDs were placed and found to be working. The patient was placed in dorsal lithotomy position using yellow fin stirrups. The vagina and abdomen was prepped and draped in the normal sterile fashion. An in and out catheter was used to drain the bladder and methylene blue was instilled. Weighted speculum was inserted into the vagina to visualize the cervix. A single tooth tenaculum was used to grasp the anterior lip of the cervix and an acorn uterine manipulator was placed. Top gloves were removed and attention was turned to the abdominal portion.? Local anesthetic with epinephrine was injected infraumbilically, an 11mm infraumbilical incision was made sharply. Direct entry into the abdominal cavity was obtained with laparoscopic visualization. A intraabdominal pressure of 6mmHg was observed and CO2 gas was insufflated to create a pneumoperitoneum to a pressure of 15mmHg. The patient was placed in Trendelenburg to facilitate moving the bowel out of the operative field. A second 11mm incision was made to the le ft, lateral to the rectus muscles with attention to avoid vasculature. Trocar introduced under direct visualization. This process was repeated on the right. Brief abdominal exam revealed normal anatomy as described above. The ureters were visualized bilaterally and noted to be distal from the operative field. The LigaSure coagulation device was inserted and used to clamp, coagulate, and transect the round ligament. LigaSure was used to clamp, coagulate, and transect the broad ligament seen proximal to the uterus and working my way down to the cardinal ligament and uterine vasculature. Anterior leaflet of the broad ligament was dissected and used to create a bladder flap the vesicouterine peritoneum. Attention was turned to the right side and this process was again repeated starting at the round ligament and coagulating and transecting down the broad ligament. The vesicouterine peritoneum was dissected and transected in the midline. The uterine's were skeletonized and coagulated bilaterally. There was a small amount of bleeding on the right which was made hemostatic with surgical clip. Uterine vasculature was successfully coagulated and transected. The right ovary was elevated away from the pelvic sidewall and the ureter was visualized and noted to be distal. The infundibulopelvic ligament was serially clamped and coagulated. The ovary was transected and placed in the posterior cul-de-sac for later retrieval. Images were obtained prior to starting hysterectomy and at the completion for the medical record. The left ovary remains in situ. Attention was turned vaginally, a weighted speculum and Max retractor were used to identify the cervix. Two Gonzalez tenaculums were used to grasp the anterior and posterior lip of the cervix. 20mL of a solution made up of 0.5% Marcaine with epinephrine injected circumferentially around the cervix. Outward traction was applied to the cervix and a scalpel was used to make a circumferential colpotomy at the cervicovaginal junction. The incision was carried down to the paracervical fascia allowing the cervix to separate from the vaginal mucosa.? Pickups and Paris scissors were used to initiate and complete dissection into the posterior colpotomy. A long weighted Mayur speculum was placed in the posterior colpotomy. The uterosacral ligaments were grasped with Z clamps, cut and suture ligated bilaterally. These were tagged to be incorporated into the vaginal cuff at a later time. Attention was turned to the anterior edge. Pickups and Metzenbaum scissors were used to initiate and complete dissection into the anterior colpotomy. A Max retractor was placed in the anterior colpotomy. A Oneyda clamp was used to slide off the uterus, remaining proximal, clamp, cut and tied with 0 Vicryl the remaining attachments of the cardinal ligaments along with the lower branches of the uterine vessels were clamped, fulgurated, and transected bilaterally.? The uterus, fallopian tube remnants, and right ovary were noted to be free of any other adhesions and was removed. The pedicals were inspected bilaterally and noted to be hemostatic. Posterior cuff was noted to be fairly hemostatic. 0-PDS was used to place a Knowles stitch for the culdoplasty, incorporating the bilateral uterosacral ligaments and plicating the posterior peritoneum. The anterior peritoneum was grasped with an Ruby clamp and pursestringed closed. The vaginal cuff was then closed with 0 Vicryl in a running locking fashion. Knowles culdoplasty was tied to suspend the apex of the vagina. Hemostasis was noted. After changing gloves, the pneumoperitoneum was reestablished, laparoscope was placed and inspection of the cuff. Irrigation of the surgical site and suction reveal hemostasis, images obtained. Brief abdominal survey revealed a normal appearing liver and abdomen, except for previous described pelvic adhesions. Pedicals and cuff reinspected and noted to be hemostatic.? No evidence of mesh from hernia repair noted. The abdominal incisions were closed with a deep single interrupted 0 Vicryl followed by a subcuticular 4-0 Monocryl and Dermabond was placed over the incision. Cystoscopy: The patient was removed from Trendelenburg. A 70degree cystoscope was inserted into the urethra. The bladder was distended with sterile water. The clinton of the bladder were inspected and noted to be intact, free of any sutures, gross masses or abnormal vasculature. Air bubble was noted at the dome of the bladder. Ureteral flow was immediately noted bilaterally. Sponge, instrument and needle counts were correct x3, per nursing. Condition: stable Disposition: same day Specimens:: Uterine body, cervix, bilateral fallopian tube remnants and right ovary Complications:: None
--- NOTE | 2024-04-13 12:03 | SUR.PHASEII ---
MEDS TO BEDS MADE AWARE OF PT BEING IN POST OP. STAFF STATES THEY ARE GETTING MEDICATIONS TOGETHER AND THEY WILL CALL IF PT HAS A COPAY
--- NOTE | 2024-04-13 13:00 | SUR.PHASEII ---
Pt became nauseous with associated dry heaves. pt started complaining of pain. anesthesia and dr hernandez were consulted at this time. Dr hernandez gave a verbal order for 10mg of compazine IV at this time.
[2024-04-13] MEDS: PROCHLORPERAZINE 10MG/2ML VIAL 10 MG IV (13:03)
--- NOTE | 2024-04-13 13:04 | ECG_ITS ---
APPROVED REPORT Exam: Resting ECG HR:112 bpm ECG Measurements Heart Rate 112 AXES TX 150 P 58 QRSd 89 QRS 68 QT 302 T -8 QTc 368 Conclusion SINUS TACHYCARDIA NONSPECIFIC ST & T-WAVE ABNORMALITY ABNORMAL ECG UNCONFIRMED REPORT Electronically signed by : Jose Loya MD 04/16/2024 21:01:47
[2024-04-13] MEDS: KETOROLAC 30MG/ML VIAL 30 MG IV ×2 (13:17→20:09)
[2024-04-13] MEDS: DEXTROSE 5%-LACTATED RINGERS 1,000 ML 100 ML IV (13:18)
[2024-04-13] MEDS: diphenhydrAMINE 50MG/ML VIAL 50 MG (13:19)
[2024-04-13] MEDS: LACTATED RINGERS 1000ML 1,000 ML 125 ML IV (15:12)
[2024-04-13] MEDS: ONDANSETRON 4MG/2ML VIAL 4 MG IV (20:06)
[2024-04-14] MEDS: KETOROLAC 30MG/ML VIAL 30 MG IV ×2 (01:32→08:02)
[2024-04-14] MEDS: LACTATED RINGERS 1000ML 1,000 ML 125 ML IV (01:33)
[2024-04-14 03:55] VITALS: BP 110/54; PULSE 81; RESP 18; TEMP 36.6; O2SAT 97
--- NOTE | 2024-04-14 03:55 | PC.NURSE ---
Patient asleep once RN entered room but awoke for scheduled meds and assessment. Patient has done well throughout the night. Patient has slept on and off and had mild nausea at the beginning of the shift but denies any currently. Patient reports having eaten some small snacks throughout the evening and tolerated well. Patient alert and oriented x4. Heart sounds auscultated over left apex at a regular rate and rhythm. Lung sounds auscultated clear bilaterally and throughout. Bowel sounds hypoactive in all 4 quadrants, abdomen nondistended but tender near lap sites, and patient denies passing flatus. Lap sites asymptomatic and covered with skin adhesive. Skin pink, dry, and intact. 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 Pain has been managed with IV Toradol and Tylenol scheduled. Trash emptied from room and patient given more peripads.
[2024-04-14] MEDS: ACETAMINOPHEN 500MG TAB 1000 MG PO (03:59)
[2024-04-14 07:10] LABS: Basophils % 0.1 % (0.1-2.0); Hematocrit 30.4 % (37.0-47.0); Hemoglobin 10.4 g/dL (12.2-16.2); Lymphocytes # 2.2 K/mm3 (0.7-4.5); Lymphocytes % 17.9 % (10-50); Mean Corpuscular HGB Conc 34.2 g/dL (31.8-35.4); Mean Corpuscular Volume 87.6 fl (81-99); Mean Platelet Volume 11.6 fl (7.4-10.4); Monocytes # 1.4 K/mm3 (0.1-1.0); Monocytes % 11.3 % (1.7-9.3); Neutrophils # 8.6 K/mm3 (1.8-7.8); Neutrophils % 70.5 % (37.0-80.0); Platelet Count 165 K/mm3 (142-424); Red Blood Count 3.47 M/mm3 (4.20-5.40); Red Cell Distribution Width 13.4 % (11.5-17.5); White Blood Count 12.2 K/mm3 (4.8-10.8)
[2024-04-14 08:02] VITALS: BP 111/63; PULSE 88; RESP 18; TEMP 36.8; O2SAT 100
[2024-04-14] MEDS: SIMETHICONE 80MG CHEWABLE TABLET 160 MG PO (08:02)
[2024-04-14] MEDS: SENNOSIDES 8.6MG/DOCUSATE 50MG TABLET 1 TAB PO (08:02)
--- NOTE | 2024-04-14 10:24 | EXP.HPDC ---
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 Surgical history also significant for tubal ligation with a follow-up salpingectomy, endometrial ablation, and a D&C. She has had 2 spontaneous vaginal deliveries, 3 spontaneous abortions, 1 elective . -She continues to have irregular bleeding and significant dysmenorrhea Ultrasound on 02/10/2024 Uterus was normal in size. EMS: 3.3 mm. Endometrium was difficult to visualize. Ultrasound has suggested findings of adenomyosis. There is also a 5 mm fluid-filled structure in the lower uterine segment. 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 Desires genetic screening -Reports well-controlled anxiety and depression -Desires STD screening -Reports irregular bowels PFSH PFSH Disclaimer: The information contained in this section may have been updated after the patient was seen, as this information can be updated by other users. Medical History GERD (gastroesophageal reflux disease) Hypothyroid Bipolar 1 disorder Anxiety Surgical History Status post endometrial ablation History of bilateral fallopian tube excision History of shoulder surgery History of dilatation and curettage History of repair of hiatal hernia History of bilateral tubal ligation Family History Other Alcoholism Asthma Cancer Coronary artery disease FHx: mental illness Heart attack Hypertension Substance abuse Thyroid disorder Social History (Updated 04/13/24 @ 16:08 by Brandy Luke RN) Smoking Status: Never smoker alcohol intake: never substance use type: denies use current occupational status: employed Travel in the last 8 weeks: None do you feel safe at home: Yes victim of physical abuse: No victim of emotional abuse: No victim of sexual abuse: No Other Medical History Have you received the Flu Vaccine for this season: No Have you received the Pneumonia Vaccine: Yes Review of Systems Review of Systems Review of systems (narrative): Review of Systems Constitutional: Denies fever, chills, and sweats Eyes: Denies vision change/ pain Respiratory: Denies cough and shortness of breath Cardiovascular: Denies chest pain and lightheadedness Gastrointestinal: denies abdominal pain. Denies nausea, vomiting. Genitourinary: Denies dysuria and incontinence Musculoskeletal: Denies shoulder pain and back pain Neurological: Denies change in speech or headaches Exam Data for Last 24 hours Vital signs and Labs for Last 24 Hours: Temp Pulse Resp BP Pulse Ox O2 Del Method 98.3 F 88 18 111/63 100 Room Air 04/14/24 08:02 04/14/24 08:02 04/14/24 08:02 04/14/24 08:02 04/14/24 08:02 04/14/24 09:00 Laboratory Results - last 24 hr 04/14/24 06:59: WBC 12.2 H, RBC 3.47 L, Hgb 10.4 L, Hct 30.4 L, MCV 87.6, MCH 30.0, MCHC 34.2, RDW 13.4, Plt Count 165, MPV 11.6 H, Neut % (Auto) 70.5, Lymph % (Auto) 17.9, [place] % (Auto) 11.3 H, Eos % (Auto) 0.0 L, Baso % (Auto) 0.1, Neut # (Auto) 8.6 H, Lymph # (Auto) 2.2, [place] # (Auto) 1.4 H, Eos # (Auto) 0.0, Baso # (Auto) 0.0 I & O for Last 24 hours: Intake & Output 04/11/24 04/12/24 04/13/24 04/14/24 23:59 23:59 23:59 23:59 Intake Total 1500 / 1500 1340 / 1340 Output Total 600 / 600 300 / 300 Balance 900 / 900 1040 / 1040 Weight 140 lb *Routine HEENT Exam Head: Present normocephalic and atraumatic Eye: Present EOMI, PERRL and normal accommodation; Absent conjunctival icterus, scleral injection, nystagmus or exophthalmos ENT: Present mucous membranes moist *Routine Respiratory Exam Respiratory: Present CTA bilaterally, normal respiratory effort, able to speak in complete sentences and symmetric chest movement; Absent accessory muscle use, decreased breath sounds, rales, respiratory distress, wheezes, distant breath sounds or diminished air movement *Routine Cardiovascular Exam Cardiovascular: Present RRR, Normal S1 and Normal S2; Absent murmur or gallop *Routine Abdominal Exam Abdominal: Present soft and normoactive bowel sounds; Absent tenderness, distended, rebound or guarding *Routine Rectal Exam Rectal:: deferred *Routine Genitalia Exam Genitalia:: normal female Meds Home Medications and Allergies Home Medications ?Medication ?Instructions ?Recorded ?Confirmed ?Type albuterol sulfate 90 mcg/actuation See Rx Instructions .Route .COMPLEX 02/16/23 04/13/24 History aerosol inhaler omeprazole 20 mg capsule,delayed 20 mg PO DAILY 02/16/23 04/13/24 History release levothyroxine 88 mcg tablet 88 mcg PO DAILY 02/04/24 04/13/24 History acetaminophen 500 mg tablet 500 mg PO Q6H PRN fever or pain 04/13/24 Rx #30 tabs ibuprofen 800 mg tablet 800 mg PO Q8H PRN pain #60 tabs 04/13/24 Rx oxycodone 5 mg tablet 5 mg PO Q8H PRN pain #15 tabs 04/13/24 Rx sennosides 8.6 mg tablet (Senna 8.6 mg PO BIDP PRN Constipation 04/13/24 Rx Lax) #60 tabs simethicone 125 mg tablet 125 mg PO DAILY PRN abdominal 04/13/24 Rx distention #60 tabs New Prescriptions to Start Prescriptions: acetaminophen Misty Herron ibuprofen Misty Herron oxycodone Misty Herron sennosides [Senna Lax] Misty Herron simethicone Misty Herron Allergies Allergy/AdvReac Type Severity Reaction Status Date / Time cetirizine (From Zyrtec) Allergy Unknown Rash Verified 04/13/24 06:25 erythromycin base Allergy Unknown RASH/HIVES Verified 04/13/24 06:25 (ERYTHROMYCIN BASE) Penicillins (PENICILLINS) Allergy Unknown I-HIVES Verified 04/13/24 06:25 promethazine (From PHENERGAN) Allergy Unknown HALLUCINATI Verified 04/13/24 06:25 ONS Hospital Course Hospital Course Hospital Course: Katerina Lawler is a 39-year-old postop day [facility], [facility], and cystoscopy. She was initially planning to be discharged on the same day as her procedure but prior to discharge she had an increase in dizziness, nausea, and emesis. Secondary to an allergy to Phenergan it was difficulty get her nausea and vomiting under control. The increase in emesis increased her pain and for these reasons we elected to proceed with overnight hospital admission to ensure stability and adequate management of pain and emesis. Her pain has been well-controlled with Toradol and Tylenol. She has not had any additional narcotics overnight. Her nausea has been very well-controlled she had 1 dose of 4 mg of Zofran at 8 PM last night. She has tolerated breakfast well. She is ambulating without difficulty. She is voiding without difficulty or dysuria. She desires discharge home today. Routine discharge was reviewed with patient in details but understanding Results Data Completed and Pending Labs on day of discharge: Labs from last 24 hours 04/14/24 06:59 WBC 12.2 H RBC 3.47 L Hgb 10.4 L Hct 30.4 L MCV 87.6 MCH 30.0 MCHC 34.2 RDW 13.4 Plt Count 165 MPV 11.6 H Neut % (Auto) 70.5 Lymph % (Auto) 17.9 [place] % (Auto) 11.3 H Eos % (Auto) 0.0 L Baso % (Auto) 0.1 Neut # (Auto) 8.6 H Lymph # (Auto) 2.2 [place] # (Auto) 1.4 H Eos # (Auto) 0.0 Baso # (Auto) 0.0 Discharge Plan Disposition Patient Disposition: Home, Self-Care Follow up Plan Follow up with: Misty Herron DO [Staff Physician] - 04/28/24 8:45 am Prescriptions/Medication Reconciliation: New sennosides [Senna Lax] 8.6 mg Tablet 8.6 mg PO BIDP PRN (Reason: Constipation) Qty: 60 2RF ibuprofen 800 mg tablet 800 mg PO Q8H PRN (Reason: pain) Qty: 60 2RF acetaminophen 500 mg tablet 500 mg PO Q6H PRN (Reason: fever or pain) Qty: 30 3RF simethicone 125 mg tablet 125 mg PO DAILY PRN (Reason: abdominal distention) Qty: 60 2RF oxycodone 5 mg tablet 5 mg PO Q8H PRN (Reason: pain) Qty: 15 0RF Continued levothyroxine 88 mcg tablet 88 mcg PO DAILY Patient Comments: TAKE 1 TABLET BY MOUTH EVERY DAY omeprazole 20 mg capsule,delayed release(DR/EC) 20 mg PO DAILY Patient Comments: TAKE 1 CAPSULE BY MOUTH EVERY DAY albuterol sulfate 90 mcg/actuation HFA aerosol inhaler See Rx Instructions .ROUTE .COMPLEX Patient Comments: INHALE 2 PUFFS EVERY 4 (FOUR) HOURS NEEDED FOR SHORTNESS OF AIR OR WHEEZING Rx Instructions: INHALE 2 PUFFS EVERY 4 (FOUR) HOURS NEEDED FOR SHORTNESS OF AIR OR WHEEZING Problem Reconciliation Problems Reviewed?: Yes Patient Discharge Instructions ACTIVITY: Continue current activity DIET: regular diet Additional Instructions: Hysterectomy Discharge You had a laparoscopic assisted vaginal hysterectomy, right salpingo-oophorectomy, and cystoscopy. This means I removed your uterus, cervix, and right ovary with fallopian tube remnants. I also used a camera to look in your bladder after the surgery and there were no problems with your bladder wall or ureters. There were no complications with your surgery. I have called several medications in for you and they are detailed below as well as discharge instructions. If you have any questions, please call the office. You will follow-up in office for a postop visit at 2 weeks and at 6 weeks. At your 6-week postop appointment you will have a pelvic exam to ensure your cuff is healing well. During the time leading up to your follow-up please remember to keep your incisions clean and dry. This means taking a shower daily and letting warm soapy water run over the incisions. You do not need to scrub the surgical glue off it is meant to be a water tight, antibacterial barrier. There were no complications with your procedure. Activity: - No lifting more than 10 lbs for 6 weeks. - No driving while you are taking narcotic pain medication. - You have 3 incisions on your abdomen that are closed with stitches and surgical glue. The glue should come off within 2 weeks. Wound care - You have surgical glue covering your incision. This will come off on its own within 1-2 weeks - You have stitches under your skin which will dissolve over the next 4-6 weeks as your body heals - Keep your wound clean and dry, ok to wash with soap and water but pat thoroughly dry Medications: - Ibuprofen (a nonsteroidal anti-inflammatory) for pain. Please take the ibuprofen scheduled for the first 2-3 days as this will help control your pain. Ibuprofen dosing should not exceed 800 mg every 8 hours - Acetaminophen (Tylenol) for discomfort. Please take Tylenol scheduled for the first 2 to 3 days. Tylenol dosing should not exceed 1000 mg every 6 hours. Please do not consume more than 4000 mg in a 24-hour. - Oxycodone (a narcotic pain medication) use the narcotic pain medication for breakthrough or severe pain. You will want to stop the narcotic pain medication first. Narcotic pain medication can be habit forming so please only use this medication if you need it. This pain medication is also associated with constipation please remember to increase your fiber intake, and water intake. I have also given you a stool softener. You should not take more than 1-2 5 mg tablets every 6 hours for pain that rates greater than 6. - Senna (a stool softener) use this medication for constipation as needed. Narcotics can increase your risk for constipation - Simethicone: a gas medication for bloating and gas pain you may experience in the next 1-2 weeks. Please call the office or return to the ER if you have any of the followin. bleeding more than 1 pad an hour for 2 hours 2. pain that does not respond to your narcotic pain medication 3. dizziness or lightheadedness such that you lose consciousness 4. abnormal discharge that looks like pus from your incisions Questions or concerns: It is my privilege to be your doctor. Please let me know if you have other questions or concerns. Misty Herron DO [facility] [place], [place] [address] Patient Instructions: Hysterectomy -- Laparoscopic Surgery Print Language: Hebrew Providers Primary Care Provider: Juan Hameed Admrosa Provider: Misty Herron Attending Provider: Misty Herron
--- NOTE | 2024-04-14 10:40 | PC.NURSE ---
D/C instructions provided and IV removed.
--- NOTE | 2024-04-14 15:18 | P.PNANES_ITS ---
[facility] Anesthesia Record Part II Anesthesia Record Part II Discharge Time: 11:56 Destination: Surgical Day Care (OP Surgery) PACU nurse assessment reviewed?: Yes Patient Condition:: Good Anesthesia Complications:: None Swallowing reflex intact?: Yes Airway Patency: Patent Cyanosis?: No Blood Pressure: 126/83 SaO2: 100 Respiratory Rate: 18 Pulse Rate: 70 Temperature: 97.6 F Mental Status: Alert & Oriented Pain level:: 0 Nausea and/or vomitting:: None Intake, IV Amount: 0 Hydration: Adequate Comments:: Pt did well in PACU and was planning to be discharge home, but developed severe pain and nausea in the post op area. Both treated per MAR and decision made to admit pt for overnight observation.
[2024-04-14 15:20] VITALS: BP 126/83; PULSE 70; RESP 18; TEMP 36.4; O2SAT 100
== END 2024-04-14 10:53 | disposition home or self-care (01) ==
LOC: OB 13:24
PROVIDERS: Admitting Provider Obstetrics & Gynecology; PCP Pediatrics; Visit Provider Obstetrics & Gynecology
PROC: 0UT9FZZ Resection of Uterus, Via Natural or Artificial Opening With Percutaneous Endoscopic Assistance (ICD-10-PCS; CPT 58552; principal; 2024-04-13 09:30)
DX: N93.9 Abnormal uterine and vaginal bleeding, unspecified (principal); N92.0 Excessive and frequent menstruation with regular cycle; N94.6 Dysmenorrhea, unspecified; N80.03 Adenomyosis of the uterus; R10.31 Right lower quadrant pain; R42 Dizziness and giddiness; T42.6X5A Adverse effect of other antiepileptic and sedative-hypnotic drugs, initial encounter
CPT/HCPCS: 58552; 36415; 84703; 85025; 86850; 93005; 96374; J3490; G0378; J0736; J0780; J1100; J1200; J1580; J1885; J2250; J2405; J3010; J7120

== ENCOUNTER 2024-06-22 18:34 | Outpatient (CLI) | payer OTHER, SELFPAY | END 2024-06-22 23:59 | disposition home or self-care (01) | LOC: LAB.DROPOF 18:35 | PROVIDERS: Visit Provider Obstetrics & Gynecology | DX: S31.105A Unspecified open wound of abdominal wall, periumbilic region without penetration into peritoneal cavity, initial encounter (principal) | CPT/HCPCS: 87070; 87077; 87186; 87205 ==

== ENCOUNTER 2024-07-08 08:27 | Outpatient (CLI) | payer OTHER, SELFPAY ==
[2024-07-08 09:23] LABS: Albumin Level 4.2 g/dl (3.5-5.0); Chloride 106 mmol/L (98-107); Sodium 140 mmol/L (136-145)
[2024-07-08 09:24] LABS: Potassium 3.9 mmoL/L (3.5-5.1)
[2024-07-08 09:26] LABS: Alanine Aminotransferase 13 U/L (12-78); Albumin/Globulin Ratio 1.6 (1.1-1.8); Alkaline Phosphatase 72 U/L (38-126); Anion Gap 11.9 mEq/L (5-15); Aspartate Amino Transferase 23 U/L (14-36); Bilirubin,Total 0.6 mg/dl (0.2-1.3); Blood Urea Nitrogen 11 mg/dl (7-17); Carbon Dioxide 26 mmol/L (22.0-30.0); Estimated Glomerular Filt Rate 111 ml/min (>60); GFR (African American) 135 ML/MIN (>60); Globulin 2.7 g/dL (1.3-3.2); Total Protein,Serum 6.9 g/dl (6.3-8.2)
[2024-07-08 09:27] LABS: Calcium 9.1 mg/dl (8.4-10.2); Glucose 98 mg/dl (74-100)
[2024-07-09 11:39] LABS: Insulin Level Total 7.7 uIU/mL (2.6-24.9)
== END 2024-07-08 23:59 | disposition home or self-care (01) ==
LOC: LAB 08:28
PROVIDERS: PCP Pediatrics; Visit Provider Obstetrics & Gynecology
DX: Z48.816 Encounter for surgical aftercare following surgery on the genitourinary system (principal); T81.89XA Other complications of procedures, not elsewhere classified, initial encounter; Z13.1 Encounter for screening for diabetes mellitus
CPT/HCPCS: 36415; 80053; 83036; 83525

== ENCOUNTER 2024-08-04 13:52 | Outpatient (CLI) | payer OTHER, SELFPAY | END 2024-08-04 23:59 | disposition home or self-care (01) | LOC: LAB.DROPOF 08-05 10:53 | PROVIDERS: PCP Obstetrics & Gynecology; Visit Provider Obstetrics & Gynecology | DX: L03.90 Cellulitis, unspecified (principal); T81.41XD Infection following a procedure, superficial incisional surgical site, subsequent encounter | CPT/HCPCS: 87070; 87077; 87186; 87205 ==

== ENCOUNTER 2024-10-28 20:29 | Emergency (ER) | payer OTHER, SELFPAY ==
--- OUTSIDE RECORDS SUMMARY | 2024-09-20 15:00 | XMS_ITS | Encounter Summary ---
Author Organization [facility] Address [address] [place] [address] Care Team Providers Care Roll Clamp Operator Name Role Phone Juan Hameed MD Primary Care Provider [phone] Reason for Visit * Reason Comments Headache Cough Congestion, body ach es Sore Throat Encounter Details Date Type Department Care Team (Late st Contact Info) Description 09/20/2024 3:00 PM EDT Office Visit [facility] [address] [place] [address] [place] [phone] Aleksandr Hameed MD [address] [place] [address] [place] [address] Viral syndrome (Primary Dx); Acute pharyngitis, unspecified etiology Social History Tobacco Use Types Packs/Day Years Used Date Smoking Tobacco: Never Smokeless Tobacco: Never Alcohol Use Standard Drinks/Week Comments No 0 (1 standard drink = 0.6 oz pur e alcohol) no concerning use pattern PHQ-2 Answer Date Recorded Retired PHQ-9: Brief Depression Severity Measure Score 0 11/06/2022 PHQ-2 Answer Date Recorded Patient Health Questionnaire-2 Score 0 09/20/2024 Comments No Sex and Gender Information Value Date Recorded Sex Assigned at Not on file Legal Sex Female 12:36 PM EDT Gender Identity Not on file Sexual Orientation Not on file documented as of this encounter Last Filed Vital Signs Vital Sign Reading Time Taken Comments Blood Pressure 116/76 09/20/2024 2:50 PM EDT Pulse 86 09/20/2024 2:50 PM EDT Temperature 36.8 C (98.2 F) 09/20/2024 2:50 PM EDT Respiratory Rate - - Oxygen Saturation 98% 09/20/2024 2:50 PM EDT Inhaled Oxygen Concentration - - Weight 60.1 kg (132 lb 9.6 oz) 09/20/2024 2:50 P M EDT Height 172.7 cm (5' 8 ) 09/20/2024 2:50 PM EDT Body Mass Index 20.16 09/20/2024 2:50 PM EDT documented in this encounter Functional Status documented as of this encounter Progress Notes * Aleksandr Hameed MD - 09/20/2024 4:12 PM EDTAssociated Problem(s): Viral syndrome Rapid strep COVID-19 and influenza screens all negative. Clinical picture most consistent with a nonspecific viral infection. Treat symptomatically with fluids, Motrin or Tylenol, and rest. Symptomatic treatment with OTC cough and cold medications, patient declining need for any prescription related medication. Advise if symptoms not improving over the next 1 to 2 days or for any significant worsening of symptoms in the interim * Aleksandr Hameed MD - 09/20/2024 3:00 PM EDT Images from the original note were not included. Follow Up Office Visit Date: 09/20/2024 Patient Name: Dinora Lawler : 1985 Chief Complaint: Chief Complaint Patient presents with Headache Cough Congestion, body aches Sore Throat History of Present Illness: Dinora Lawler is a 39 y.o. female who is here today for onset yesterday of a sore throat headache nasal congestion drainage cough myalgias fevers and chills, with fever yesterday of 102. No nausea vomiting abdominal pain or diarrhea. Daughter has had similar symptoms for the last 2 days though less severe.. Non-smoker. Regular patient of Dr. Juan Hameed. Subjective Review of Systems: Review of Systems I have reviewed the patients family history, social history, past medical history, past surgical history and have updated it as appropriate. Medications: Current Outpatient Medications: albuterol sulfate HFA 108 (90 Base) MCG/ACT inhaler, Inhale 2 puffs Every 4 (Four) Hours As Needed for Shortness of Air or Wheezing., Disp: 18 g, Rfl: 2 fluticasone (FLONASE) 50 MCG/ACT nasal spray, Administer 2 sprays into the nostril(s) as directed by provider Daily., Disp: 15.8 g, Rfl: 3 levothyroxine (Synthroid) 75 MCG tablet, Take 1 tablet by mouth Every Morning., Disp: 30 tablet, Rfl: 2 mirtazapine (Remeron) 15 MG tablet, Take 0.5 tablets by mouth Every Night., Disp: 45 tablet, Rfl: 0 montelukast (SINGULAIR) 10 MG tablet, Take 1 tablet by mouth every night at bedtime., Disp: 90 tablet, Rfl: 1 omeprazole (priLOSEC) 20 MG capsule, Take 1 capsule by mouth Daily., Disp: 90 capsule, Rfl: 2 Allergies: Allergies Allergen Reactions Penicillins Anaphylaxis Fluoxetine GI Intolerance GI Upset / vomiting Promethazine Hallucinations Zyrtec [Cetirizine] Rash Objective Physical Exam: Please see above Vital Signs: Vitals: 09/20/24 1450 BP: 116/76 BP Location: Left arm Patient Position: Sitting Cuff Size: Adult Pulse: 86 Temp: 98.2 ??F (36.8 ??C) TempSrc: Temporal SpO2: 98% Weight: 60.1 kg (132 lb 9.6 oz) Height: 172.7 cm (68 ) Body mass index is 20.16 kg/m??. BMI is within normal parameters. No other follow-up for BMI required. Physical Exam Constitutional: Appearance: She is normal weight. Comments: Minimally ill, hydrated, NAD, BMI 20.1 HENT: Right Ear: Tympanic membrane and ear canal normal. Left Ear: Tympanic membrane and ear canal normal. Nose: Congestion and rhinorrhea present. Mouth/Throat: Mouth: Mucous membranes are moist. Pharynx: Posterior oropharyngeal erythema present. No oropharyngeal exudate. Comments: Mild to moderate posterior erythema with no exudate petechiae or ulcerations Neck: Comments: Mild upper anterior cervical tenderness bilaterally with no adenopathy masses or meningeal signs Cardiovascular: Rate and Rhythm: Normal rate and regular rhythm. Heart sounds: Normal heart sounds. No murmur heard. No friction rub. No gallop. Pulmonary: Effort: Pulmonary effort is normal. No respiratory distress. Breath sounds: Normal breath sounds. No stridor. No wheezing, rhonchi or rales. Comments: No current cough Musculoskeletal: Cervical back: Tenderness present. No rigidity. Lymphadenopathy: Cervical: No cervical adenopathy. Skin: General: Skin is warm and dry. Findings: No rash. Neurological: General: No focal deficit present. Mental Status: She is alert. Psychiatric: Mood and Affect: Mood normal. Procedures Results: Labs: Hemoglobin A1C Date Value Ref Range Status 12/07/2023 5.3 4.8 - 5.6 % Final Comment: Prediabetes: 5.7 - 6.4 Diabetes: >6.4 Glycemic control for adults with diabetes: <7.0 TSH Date Value Ref Range Status 07/22/2024 0.142 (L) 0.450 - 4.500 uIU/mL Final POCT Results (if applicable): Results for orders placed or performed in visit on 09/20/24 POC Rapid Strep A Collection Time: 09/20/24 3:33 PM Specimen: Swab Result Value Ref Range Rapid Strep A Screen Negative Negative, VALID, INVALID, Not Performed Internal Control Passed Passed Lot Number [id number] Expiration Date 06/23/2026 POCT SARS-CoV-2 + Flu Antigen CELENA Collection Time: 09/20/24 3:33 PM Specimen: Swab Result Value Ref Range SARS Antigen Not Detected Not Detected, Presumptive Negative Influenza A Antigen CELENA Not Detected Not Detected Influenza B Antigen CELENA Not Detected Not Detected Internal Control Passed Passed Lot Number [id number] Expiration Date 2025 Assessment / Plan Assessment/Plan: Diagnoses and all orders for this visit: 1. Viral syndrome (Primary) Assessment & Plan: Rapid strep COVID-19 and influenza screens all negative. Clinical picture most consistent with a nonspecific viral infection. Treat symptomatically with fluids, Motrin or Tylenol, and rest. Symptomatic treatment with OTC cough and cold medications, patient declining need for any prescription related medication. Advise if symptoms not improving over the next 1 to 2 days or for any significant worsening of symptoms in the interim Orders: - POC Rapid Strep A - POCT SARS-CoV-2 + Flu Antigen CELENA 2. Acute pharyngitis, unspecified etiology - POC Rapid Strep A - POCT SARS-CoV-2 + Flu Antigen CELENA Vaccine Counseling: Follow Up: Return if symptoms worsen or fail to improve. At [facility], we believe that sharing information builds trust and better relationships. You are receiving this note because you recently visited [facility]. It is possible you will see health information before a provider has talked with you about it. This kind of information can be easy to misunderstand. To help you fully understand what it means for your health, we urge you to discussthis note with your provider. Aleksandr Hameed MD [facility] documented in this encounter Plan of Treatment Upcoming Encounters Date Type Department Care Team (Late st Contact Info) Description 12/16/2024 8:45 AM EDT Office Visit [facility] [address] [place] [address] [place] [phone] Juan Hameed MD [address] [place] [address] [place] [id number] documented as of this encounter Procedures Procedure Name Priority Date/Time Associated Diagnosis Comments POC FLU + SARS ANTIGEN CELENA Routine 09/20/2024 3:33 PM EDT Viral syndrome Acute pharyngitis, unspecified etiology POCT RAPID STREP A Routine 09/20/2024 3: 33 PM EDT Viral syndrome Acute pharyngitis, unspecified etiology documented in this encounter Results * (ABNORMAL) POCT SARS-CoV-2 + Flu Antigen CELENA (09/20/2024 3:33 PM EDT) SARS Antigen Not Detected Not Detected, Presumptive Negative Influenza A Antigen CELENA Not Detected Not Detected Influenza B Antigen CELENA Not Detected Not Detected Internal Control Passed Passed Lot Number [id number] Expiration Date 2025 Swab 09/20/2024 3:33 PM EDT Aleksandr Hameed MD POINT OF CARE TEST ORDERABLES Final Result * POC Rapid Strep A (09/20/2024 3:33 PM EDT) Rapid Strep A Screen Negative Negative, VALID, INVALID, Not Performed [facility] Internal Control Passed Passed [facility] Lot Number [id number] [facility] Expiration Date 06/23/2026 [facility] Swab 09/20/2024 3:33 PM EDT us Aleksandr Hameed MD POINT OF CARE TEST ORDERABLES Final Result [facility]
[address] [place] [address], documented in this encounter Visit Diagnoses Diagnosis Viral syndrome- Primary Unspecified viral infection, in conditions classified elsewhere and of unspecified site Acute pharyngitis, unspecified etiology documented in this encounter Care Teams Roll Clamp Operator Relationship Specialty Start Date End Date Juan Hameed MD [address] [place] [address] [place] [address] PCP - General Internal Medicine 03/10/18 documented as of this encounter
--- OUTSIDE RECORDS SUMMARY | 2024-10-14 08:30 | XMS_ITS | Encounter Summary ---
[facility] Organization [facility] Address [address] [place] [address] Care Team Providers Care Checking Department Supervisor Name Role Phone Juan Hameed MD Primary Care Provider [phone] Encounter Details Date Type Department Care Team (Late st Contact Info) Description 10/14/2024 8:30 AM EDT Office Visit [facility] [address] [place] [address] [place] [address] Juan Hameed MD [address] [place] [address] [place] [address] Anxiety and depression (Primary Dx); Psychophysiological insomnia; Acquired hypothyroidism; Gastroesophageal reflux disease without esophagitis; Mild intermittent intrinsic asthma without status asthmaticus without complication; Seasonal allergic rhinitis due to pollen; Tinea corporis Social History Tobacco Use Types Packs/Day Years [...] Sign Reading Time Taken Comments Blood Pressure 116/78 10/14/2024 8:36 AM EDT Pulse 76 10/14/2024 8:13 AM EDT Temperature 36.7 C (98 F) 10/14/2024 8:13 AM EDT Respiratory Rate 18 10/14/2024 8:13 AM EDT Oxygen Saturation 99% 10/14/2024 8:13 AM EDT Inhaled Oxygen Concentration - - Weight 57.6 kg (127 lb) 10/14/2024 8:13 AM EDT Height 172.7 cm (5' 8 ) 10/14/2024 8:13 AM EDT Body Mass Index 19.31 10/14/2024 8:13 AM EDT documented in this encounter Progress Notes * Juan Hameed MD - 10/14/2024 8:36 AM EDTAssociated Problem(s): Tinea corporis Some modest persisting fungal rash on the inferior aspect the umbilicus, on and off persistent since she had her hysterectomy with some surgical site at that location in early 2024. Previous treatment clotrimazole, initiate terbinafine 1% cream twice daily for at least 2 weeks, with COVID treatmentof triamcinolone 0.1% cream twice daily for the first week or so and as improves can transition to the terbinafine alone. Keep the area clean and dry. Advised if not improving. * Juan Hameed MD - 10/14/2024 8:35 AM EDTAssociated Problem(s): Seasonal allergic rhinitis due to pollen Seasonal pattern of allergies more spring and fall, with good response to use of Flonase, Claritin and Singulair seasonally. General use antihistamine much as it makes her feel a bit funny. Modest flare at this time but not enough that she is needing to use her medicine regularly, although caution secondary asthmatic component. Additional benefit of saline spray, nasal flushing. No new concerns as of 10/14/2024 * Juan Hameed MD - 10/14/2024 8:35 AM EDTAssociated Problem(s): Psychophysiological insomnia Comorbid with anxiety and depression for which the patient has received notable response to use of Remeron 15 mg at nighttime, and improved with increase of Remeron to 30 mg at nighttime as of 07/13/2023 felt to be better at the lower dose of Remeron 15 mg nightly, which was decreased back down to that dose on 12/07/2023. With some further mild sedation in the morning she stopped the Remeron 15 mg nightly as of about April 2024 and she has had some modest breakthrough sleep difficulties and mild breakthrough anxiety symptoms, such we will resume on 07/22/2024 at Remeron 15 mg take half tablet nightly and this has been a good balance of dosing, she is pleased with how she is doing. Continue go od sleep hygiene. Reassess at 2-month follow-up visit. * Juan Hameed MD - 10/14/2024 8:35 AM EDTAssociated Problem(s): Intrinsic asthma without status asthmaticus without complication Mild intermittent asthma pattern, generally doing currently well, although typical triggers with viruses and allergies. Recommend caution with allergy triggers that they could exacerbate this asthmatic component as well. Advise any increased use of inhaler more than a couple times weekly. No new concerns as of 10/14/2024. * Juan Hameed MD - 10/14/2024 8:35 AM EDTAssociated Problem(s): Gastroesophageal reflux disease without esophagitis Status post hiatal hernia repair with fundoplication by Dr. Gaona has in December 2019 with good benefit, after EGD by Dr. Templeton 09/05/2019 showing hiatal hernia with esophagitis in the gastroesophageal junction compatible with esophagitis. She was seen April [address] Gaona, who repeated EGD 05/24/2021, showing some gastritis and ulcer this gastroesophageal junction. Since that time she isoverall doing better as long as she avoids spicy or acidic foods. Resumption of omeprazole 20 mg daily of regularity on 01/27/2023, which she does feel that she does fairly well with this way but if she misses the doses too much she will have breakthrough symptoms. As such we will continue unchanged. Continue reflux precautions. No new concerns as of 10/14/2024. * Juan Hameed MD - 10/14/2024 8:34 AM EDTAssociated Problem(s): Anxiety and depression Anxiety and depressive symptoms with more anxiety predominant symptoms. Historically she has been on different SSRI medications including Zoloft 25 mg daily, fluoxetine 10 mg tablet daily, Celexa, with overall the SSRI therapy potentially gave benefit but did cause some side effects, including fluoxetine with irritability, Celexa with unusual thoughts, Zoloft with headache, more recently Lexapro with nauseousness. Subsequent venlafaxine from summer/fall 2018 resulted in GI side effects. Wellbutrin as started December 2020 equivocal benefit, but no notable side effects. Low-dose Cymbalta attempted fall 2021 unfortunately caused her to diminish ambition, subsequently Viibryd 20 mg daily resulted in feeling poorly. Per her [employer] testing results she would be appropriate for Viibryd (nottolerated), Pristiq, Trintellix, and Remeron. With her comorbid sleep difficulty, initiation on 01/27/2023 of low-dose mirtazapine 15 mg at nighttime, titrated on 07/11/2023 to mirtazapine to 30 mg at nighttime. Additional buspirone 7.5 mg twice daily with more as needed use had been beneficial. The morning time sedation we decreased the mirtazapine down to 15 mg nightly as of 12/07/2023 with benefit. Subsequently she was still doing better with her mood and felt that she is still having a little morning time sedation as such as of about April 2024 she was on mirtazapine at 15 mg nightly, but with some breakthrough mood and sleeping difficulty resumed on 07/22/2024 mirtazapine 15 mg at half tablet nightly and that since he found good balance with improvement in mood and also still good sleep pattern. No SI/HI. Of note previous significant stressors in June 2023 led to completion of FMLA form for work for work to allow her to have some periodically based on stressors with FMLA based paperwork initially 11/14/2021, then 11/14/2022, and last time 01/08/2024. This FMLA's paperwork documents the potential work restrictions from significant emotional difficulties/anxiety where she may haveto miss certain days at random amounts of time pending her stress triggers. I continue to recommendlifestyle modifications to benefit mood, especially considering resumption of regular exercise. Reassess at follow-up visit. * Juan Hameed MD - 10/14/2024 8:33 AM EDTAssociated Problem(s): Acquired hypothyroidism Most recent laboratory investigation 07/22/2024 with TSH now low at 0.14 and free T4 elevated 2.02, only change in treatment she did have hysterectomy/bilateral salpingo-oophorectomy March 2024. As such we have decreased levothyroxine from 88 mcg down to 75 mcg daily. 12/07/2023 with TSH mildly increased at 7.940 and free T4 normal at 1.02, prior to that 11/06/2022 with normalized TSH 1.690 and free T4 1.12, Prior 09/01/2022 TSH low at 0.018, free T41.96. With blood work 12/07/2023 we adjusted up levothyroxine from 75 mcg up to 88 mcg daily. With now changed back to levothyroxine 75 mcg daily will recheck today TSH and free T4 on 10/14/2024 with management per results * Meaghan Gerard MA - 10/14/2024 8:30 AM EDT Venipuncture Blood Specimen Collection Venipuncture performed in left arm by Meaghan Gerard MA with good hemostasis. Patient tolerated the procedure well without complications. 10/14/24 Megahan Gerard MA * Juan Hameed MD - 10/14/2024 8:30 AM EDT Images from the original note were not included. Office Note Name: Dinora Lawler : 1985 Chief Complaint No chief complaint on file. Subjective History of Present Illness: Dinora Lawler is a 39 y.o. female who presents today for follow-up visit for multimedical problems. At last visit we resumed back lower dose of mirtazapine at 15 mg tablet take half a tablet nightly and this seems to given benefit on her mood but still good sleep and not feeling any sedation in the morning. She is pleased with how she is doing on this. With her thyroid we decreased the dosing at last visit as her thyroid hormones were showing she had too much levothyroxine treatment, and she is tolerating 75 mcg dosing. Will recheck today. Otherwise she is in asthma symptoms doing well. Reflux symptoms continue doing well with as needed omeprazole. She does have a little rash around the umbilicus has been on and off last few months, around a surgical site where she had her hysterectomy. 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 Neurosurgical evaluation by Dr. Hickey recommended conservative treatment. Depression Epigastric pain Follicular cyst of the skin and subcutaneous tissue, unspecified Localized edema Pain in right leg Palpitations Raynaud's syndrome without gangrene Shoulder pain Left shoulder pain/rotator cuff injury, pending physical therapy in March 2013. Past Surgical History: Procedure Laterality Date COLONOSCOPY colonoscopy per Dr. Sean Templeton 01/02/2016 with normal colonoscopy results excluding small internal and external hemorrhoids felt to be likely source of patient's GI bleeding. TUBAL ABDOMINAL LIGATION Family History Problem Relation Age of Onset Heart disease Mother Cancer Mother ovarian Breast cancer Maternal Grandmother Heart disease Maternal Grandmother Heart disease Maternal Grandfather Breast cancer Maternal Great-Grandmother Cervical cancer Maternal Great-Grandmother Vital Signs BP 116/78 Pulse 76 Temp 98 ??F (36.7 ??C) (Temporal) Resp 18 Ht 172.7 cm (68 ) Wt 57.6 kg(127 lb) SpO2 99% BMI 19.31 kg/m?? Estimated body mass index is 19.31 kg/m?? as calculated from the following: Height as of this encounter: 172.7 cm (68 ). Weight as of this encounter: 57.6 kg (127 lb). Physical Exam Constitutional: General: She is not in acute distress. Appearance: Normal appearance. She is not ill-appearing, toxic-appearing or diaphoretic. HENT: Right Ear: Tympanic membrane, ear canal and external ear normal. Left Ear: Tympanic membrane, ear canal and external ear normal. Nose: Rhinorrhea present. Comments: Mild clear rhinorrhea, pale mucosa Mouth/Throat: Mouth: Mucous membranes are moist. Pharynx: Oropharynx is clear. No oropharyngeal exudate or posterior oropharyngeal erythema. Cardiovascular: Rate and Rhythm: Normal rate and regular rhythm. Pulses: Normal pulses. Heart sounds: Normal heart sounds. No murmur heard. No friction rub. No gallop. Pulmonary: Effort: Pulmonary effort is normal. No respiratory distress. Breath sounds: Normal breath sounds. No stridor. No wheezing. Abdominal: General: Abdomen is flat. Bowel sounds are normal. There is no distension. Palpations: Abdomen is soft. There is no mass. Tenderness: There is no abdominal tenderness. There is no guarding or rebound. Hernia: No hernia is present. Musculoskeletal: Cervical back: Neck supple. No tenderness. Right lower leg: No edema. Left lower leg: No edema. Lymphadenopathy: Cervical: No cervical adenopathy. Skin: General: Skin is warm and dry. Capillary Refill: Capillary refill takes less than 2 seconds. Findings: Rash present. Comments: Approximately 2 to 3 cm area of slightly scaly rash with more prominent inflamed borders consistent fungal etiologies no signs of secondary impetigo, round like assaulting inferior aspect. Neurological: General: No focal deficit present. Mental Status: She is alert and oriented to person, place, and time. Mental status is at baseline. Gait: Gait normal. Psychiatric: Mood and Affect: Mood normal. Behavior: Behavior normal. Thought Content: Thought content normal. POCT Results (if applicable): Results for orders [...] Not Detected, Presumptive Negative Influenza A Antigen ECLENA Not Detected Not Detected Influenza B Antigen CELENA Not Detected Not Detected Internal Control Passed Passed Lot Number [id number] Expiration Date 2025 Assessment and Plan Diagnoses and all orders for this visit: 1. Anxiety and depression (Primary) Assessment & Plan: Anxiety and depressive symptoms with more anxiety predominant symptoms. Historically she has been on different SSRI medications including Zoloft 25 mg daily, fluoxetine 10 mg tablet daily, Celexa, with overall the SSRI therapy potentially gave benefit but did cause some side effects, including fluoxetine with irritability, Celexa with unusual thoughts, Zoloft with headache, more recently Lexapro with nauseousness. Subsequent venlafaxine from summer/fall 2018 resulted in GI side effects. Wellbutrin as started December 2020 equivocal benefit, but no notable side effects. Low-dose Cymbalta attempted fall 2021 unfortunately caused her to diminish ambition, subsequently Viibryd 20 mg daily resulted in feeling poorly. Per her [employer] testing results she would be appropriate for Viibryd (not tolerated), Pristiq, Trintellix, and Remeron. With her comorbid sleep difficulty, initiation on 01/27/2023 of low-dose mirtazapine 15 mg at nighttime, titrated on 07/11/2023 to mirtazapine to 30 mg at nighttime. Additional buspirone 7.5 mg twice daily with more as needed use had been beneficial. The morning time sedation we decreased the mirtazapine down to 15 mg nightly as of 12/07/2023 with benefit. Subsequently she was still doing better with her mood and felt that she is still having a little morning time sedation as such as of about April 2024 she was on mirtazapine at 15 mg nightly, but w ith some breakthrough mood and sleeping difficulty resumed on 07/22/2024 mirtazapine 15 mg at half tablet nightly and that since he found good balance with improvement in mood and also still good sleeppattern. No SI/HI. Of note previous significant stressors in June 2023 led to completion of [employer] form for work for work to allow her to have some periodically based on stressors with [employer] based paperwork initially 11/14/2021, then 11/14/2022, and last time 01/08/2024. This [place] paperwork documentsthe potential work restrictions from significant emotional difficulties/anxiety where she may have to miss certain days at random amounts of time pending her stress triggers. I continue to recommend lifestyle modifications to benefit mood, especially considering resumption of regular exercise. Reassess at follow-up visit. 2. Psychophysiological insomnia Assessment & Plan: Comorbid with anxiety and depression for which the patient has received notable response to use of Remeron 15 mg at nighttime, and improved with increase of Remeron to 30 mg at nighttime as of 07/13/2023 felt to be better at the lower dose of Remeron 15 mg nightly, which was decreased back down to that dose on 12/07/2023. With some further mild sedation in the morning she stopped the Remeron 15 mg nightly as of about April 2024 and she has had some modest breakthrough sleep difficulties and mild breakthrough anxiety symptoms, such we will resume on 07/22/2024 at Remeron 15 mg take half tablet nightly and this has been a good balance of dosing, she is pleased with how she is doing. Continue go od sleep hygiene. Reassess at 2-month follow-up visit. 3. Acquired hypothyroidism Assessment & Plan: Most recent laboratory investigation 07/22/2024 with TSH now low at 0.14 and free T4 elevated 2.02, only change in treatment she did have hysterectomy/bilateral salpingo-oophorectomy March 2024. As such we have decreased levothyroxine from 88 mcg down to 75 mcg daily. 12/07/2023 with TSH mildly increased at 7.940 and free T4 normal at 1.02, prior to that 11/06/2022 with normalized TSH 1.690 and free T4 1.12, Prior 09/01/2022 TSH low at 0.018, free T41.96. With blood work 12/07/2023 we adjusted up levothyroxine from 75 mcg up to 88 mcg daily. With now changed back to levothyroxine 75 mcg daily will recheck today TSH and free T4 on 10/14/2024 with management per results Orders: - T4, Free; Future - TSH; Future - TSH - T4, Free 4. Gastroesophageal reflux disease without esophagitis Assessment & Plan: Status post hiatal hernia repair with fundoplication by Dr. Gaona has in December 2019 with good benefit, after EGD by Dr. Templeton 09/05/2019 showing hiatal hernia with esophagitis in the gastroesophageal junction compatible with esophagitis. She was seen April [address] Gaona, who repeated EGD 05/24/2021, showing some gastritis and ulcer this gastroesophageal junction. Since that time she isoverall doing better as long as she avoids spicy or acidic foods. Resumption of omeprazole 20 mg daily of regularity on 01/27/2023, which she does feel that she does fairly well with this way but if she misses the doses too much she will have breakthrough symptoms. As such we will continue unchanged. Continue reflux precautions. No new concerns as of 10/14/2024. 5. Mild intermittent intrinsic asthma without status asthmaticus without complication Assessment & Plan: Mild intermittent asthma pattern, generally doing currently well, although typical triggers with viruses and allergies. Recommend caution with allergy triggers that they could exacerbate this asthmatic component as well. Advise any increased use of inhaler more than a couple times weekly. No new concerns as of 10/14/2024. 6. Seasonal allergic rhinitis due to pollen Assessment & Plan: Seasonal pattern of allergies more spring and fall, with good response to use of Flonase, Claritin and Singulair seasonally. General use antihistamine much as it makes her feel a bit funny. Modest flare at this time but not enough that she is needing to use her medicine regularly, although caution secondary asthmatic component. Additional benefit of saline spray, nasal flushing. No new concerns as of 10/14/2024 7. Tinea corporis Assessment & Plan: Some modest persisting fungal rash on the inferior aspect the umbilicus, on and off persistent since she had her hysterectomy with some surgical site at that location in early 2024. Previous treatment clotrimazole, initiate terbinafine 1% cream twice daily for at least 2 weeks, with COVID treatmentof triamcinolone 0.1% cream twice daily for the first week or so and as improves can transition to the terbinafine alone. Keep the area clean and dry. Advised if not improving. Orders: - terbinafine (lamISIL) 1 % cream; Apply 1 Application topically to the appropriate area as directed 2 (Two) Times a Day. Dispense: 28.4 g; Refill: 1 - triamcinolone (KENALOG) 0.1 % cream; Apply 1 Application topically to the appropriate area as directed 2 (Two) Times a Day. Dispense: 28.4 g; Refill: 1 BMI is within normal parameters. No other follow-up for BMI required. Vaccine Counseling: Follow Up Return in about 2 months (around 12/15/2024) for Annual physical. Juan Hameed MD documented in this encounter Plan of Treatment Upcoming Encounters Date Type Department Care Team (Late st Contact Info) Description 12/16/2024 8:45 AM EDT Office Visit [facility] [address] [place] [address] [place] [address] Juan Hameed MD [address] [place] [address] [place] [address] documented as of this encounter Procedures Procedure Name Priority Date/Time Associated Diagnosis Comments TSH Routine 10/14/2024 8:34 AM EDT Acquired hypothyroidism T4, FREE Routine 10/14/2024 8:34 AM EDT Acquired hypothyroidism documented in this encounter Results * TSH (10/14/2024 8:34 AM EDT) TSH 1.410 0.450 - 4.500 uIU/mL [facility] Blood Structure of left upper limb / Unknown 10/14/2024 8:34 AM EDT 10/14/2024 Comment:Blood Release to robert Thomas [facility]) - 10/15/2024 6:06 AM EDT Performed at: [facility] [id number] Tow Bar Driver: Christ Alvarez PhD, Phone: [phone] Juan Hameed MD LAB BLOOD ORDERABLES Final Resul t Performing Organization Address City/[facility]/ZIP Co de Phone Number [facility] ([facility]) [address] [place] [address], [facility] [address] [place] [address], [place] [phone] * T4, Free (10/14/2024 8:34 AM EDT) Free T4 1.41 0.82 - 1.77 ng/dL [facility] Blood Structure of left upper limb / Unknown 10/14/2024 8:34 AM EDT 10/14/2024 Comment:Blood Release to pat i Martha [facility] ([facility]) - 10/15/2024 6:06 AM EDT [facility]formed at: [facility] [address] [place] [id number] Tow Bar Driver: Christ Alvarez PhD, Phone: [phone] Juan Hameed MD LAB BLOOD ORDERABLES Final Resul t Performing Organization Address [facility] Co de Phone Number [facility] ([facility]UL[facility]) [address] [place] [address], [place] [phone] [facility] [address] [place] [address], [place] [phone] documented in this encounter Visit Diagnoses Diagnosis Anxiety and depression- Primary Psychophysiological insomnia Persistent disorder of initiating or maintaining sleep Acquired hypothyroidism Unspecified hypothyroidism Gastroesophageal reflux disease without esophagitis Esophageal reflux Mild intermittent intrinsic asthma without status asthmaticus without complication Seasonal allergic rhinitis due to pollen Tinea corporis Dermatophytosis of the body documented in this encounter Care Teams Checking Department Supervisor Relationship Specialty Start Date End Date Juan Hameed MD [address] [place] [address] [place] [address] PCP - General Internal Medicine 03/10/18 documented as of this encounter
--- OUTSIDE RECORDS SUMMARY | 2024-10-28 21:08 | XMS_ITS | Encounter Summary ---
Author Organization [facility] Address [address] [place] [address] Care Team Providers Care Editor [employer] Name Role Phone Juan Hameed MD Primary Care Provider [phone] Encounter Details Date Type Department Care Team (Latest Contact Info) Description 09/20/2024 Travel Social History Tobacco Use Types Packs/Day Years [...] on file documented as of this encounter Functional Status documented as of this encounter Plan of Treatment Upcoming Encounters Date Type Department Care Team (Late st Contact Info) Description 12/16/2024 8:45 AM EDT Office Visit [facility] [address] [place] [id number] Juna [facility]ed [facility] [place] [address] documented as of this encounter Visit Diagnoses Not on filedocumented in this encounter Care Teams Editor [employer] Relationship Specialty Start Date End Date Juan Hameed MD [address] [place] [address] PCP - General Internal Medicine 03/10/18 documented as of this encounter
--- OUTSIDE RECORDS SUMMARY | 2024-10-28 21:08 | XMS_ITS | Clinical Summary ---
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 18 g 2 025 Active fluticasone (FLONASE) 50 MCG/ACT nasal sprayIndications: Seasonal allergic rhinitis due to pollen Administer 2 sprays into the nostril(s) as directed by provider Daily. 15.8 g 3 025 Active montelukast (SINGULAIR) 10 MG tabletIndications :Seasonal allergic rhinitis due to pollen Take 1 tablet by mouth every night at bedtime. 90 tablet 1 025 Active omeprazole (priLOSEC) 20 MG capsuleIndication s:Gastroesophagea l reflux disease without esophagitis Take 1 capsule by mouth Daily. 90 capsule 2 025 Active terbinafine (lamISIL) 1 % creamIndications: Tinea corporis Apply 1 Application topically to the appropriate area as directed 2 (Two) Times a Day. 28.4 g 1 025 Active triamcinolone (KENALOG) 0.1 % creamIndications: Tinea corporis Apply 1 Application topically to the appropriate area as directed 2 (Two) Times a Day. 28.4 g 1 Active levothyroxine (SYNTHROID, LEVOTHROID) 75 MCG tabletIndications :Acquired hypothyroidism TAKE 1 TABLET BY MOUTH EVERY DAY IN THE MORNING 90 tablet 1 Active mirtazapine (REMERON) 15 MG tabletIndications :Anxiety and depression,Psycho physiological insomnia TAKE 0.5 TABLETS BY MOUTH EVERY NIGHT 45 tablet 2 Active mirtazapine (Remeron) 15 MG tabletIndications :Anxiety and depression,Psycho physiological insomnia Take 0.5 tablets by mouth Every Night. 45 tablet 025 2024 Discontinued levothyroxine (Synthroid) 75 MCG tabletIndications :Acquired hypothyroidism Take 1 tablet by mouth Every Morning. 30 tablet 2 2024 Discontinued Active Problems Problem Noted Date Diagnosed Date Tinea corporis 10/14/2024 Assessment & Plan (10/14/2024 8:36 AM EDT): Some modest persisting fungal rash on the inferior aspect the umbilicus, on and off persistent since she had her hysterectomy with some surgical site at that location in early 2024. Previous treatment clotrimazole, initiate terbinafine 1% cream twice daily for at least 2 weeks, with COVID treatment of triamcinolone 0.1% cream twice daily for the first week or so and as improves can transition to the terbinafine alone. Keep the area clean and dry. Advised if not improving. Tension headache 12/07/2023 Assessment & Plan (07/22/2024 2:32 PM EDT): Discussed 12/07/2023, somewhat variable throughout the day, also may be more in the night morning time, questioning some relation to use of pillow or how she is sleeping. Also caution how she holds her head with activities such as looking at her phone or watching TV, etc. Make adjustments in that regard, recommend heating pad, massage. Patient transitionally naproxen 250 mg twice daily as needed, which did get some benefit initially but this pattern is settled and she is no longer requiring. If in the future this became a more persistent problem we could consider physical therapy. Assessment & Plan (12/07/2023 9:20 AM EDT): Newly discussed 12/07/2023, somewhat variable throughout the day, also may be more in the night morning time, questioning some relation to use of pillow or how she is sleeping. Also caution how she holds her head with activities such as looking at her phone or watching TV, etc. Make adjustments in that regard, recommend heating pad, massage. Add naproxen to 50 mg twice daily as needed, caution stomach upset, avoid daily use. Reassess at follow-up visit, if persisting becoming more problematic we could consider physical therapy. Other chest pain 07/09/2023 Assessment & Plan (07/13/2023 9:18 AM EDT): Onset of chest pain 07/07/2023 coinciding with a stressful argument with one of her stepchildren, with her stressors type response. Nonetheless she was having notable chest pain and was evaluated with reported negative lab work including what sounds like cardiac enzymes, negative EKG and chest x-ray, with additional blood work including thyroid testing normal. Ultimately felt related to her anxiety reaction. I do not have the records yet despite having been requested 3 times in the last 24 hours. Once I do obtain now I will verify that this is accurate once records obtained. Addendum 07/13/2023. I been able to finally retrieve records from [facility] and ER records do reveal no concerns on investigations including negative blood work including troponins, CMP, CMP lipase, urine test, BNP, D- dimer, etc. Chest x-ray and EKG were normal. No new areas of concern based on our previous discussions, no management changes necessary. Acute right-sided low back pain with right-sided sciatica 04/21/2023 Assessment & Plan (05/04/2023 1:05 PM EST): Initially evaluated 04/21/2023 with an unclear etiology, but she woke up the preceding morning with bilateral lower back pain in the upper lumbar region. No neurologic manifestations of concern. What appeared to be good initial response to conservative management including course of prednisone followed by naproxen but as soon as she completed the prednisone it seemed to flareup a bit. Also over the last days she has had more of a shooting pain down the right leg and the L5-S1 dermatomal path which is quite bothersome and limiting her sleep. No weakness in the extremity. No bowel or bladder incontinence. Due to this recurrence I would like to obtain x-ray of the lumbar spine to assess for any bony abnormality, if reassuring pursue physical therapy to evaluate and treat. Initiate again prednisone 10 mg tablet 3 tablets daily x 5 days. For radicular pain, add gabapentin 100 mg at nighttime, although with comorbid Remeron for sleep, caution oversedation. She declines need for Flexeril. Continue heating pad, avoidance of aggravating activities. Advise concerns. Assessment & Plan (04/21/2023 4:09 PM EST): Unclear etiology but she woke up yesterday morning with bilateral lower back pain in the upper lumbar region. No neurologic manifestations of concern. Reassuring examination findings. Recommend conservative management with heating pad, light stretching, initiate prednisone 10 mg tablet 3 tablets daily x 5 days followed by naproxen 375 mg twice daily for another few days, then as needed, number 30 tablets provided. Discussed potential Flexeril, she declines need. Expected course of gradual improvement in the next week or so, if it does not improve or worsens we will consider x-ray imaging and/or physical therapy. Acute swimmer's ear of left side 04/21/2023 Assessment & Plan (04/21/2023 4:09 PM EST): Onset the last day or 2, modest pattern but persisting with notable ear pain but no drainage. Initiate Cortisporin otic eardrops 3 drops in the affected ear 3-4 times daily for 7 days. Likely exposure while on vacation a cruise ship last week. Advised if not improving. Psychophysiological insomnia 03/03/2023 Assessment & Plan (10/14/2024 8:35 AM EDT): Comorbid with anxiety and depression for which [...] pleased with how she is doing. Continue good sleep hygiene. Reassess at 2-month follow- up visit. Assessment & Plan (07/22/2024 2:31 PM EDT): Comorbid with anxiety and depression for which [...] breakthrough anxiety symptoms, such we will resume today at Remeron 50 mg take half tablet nightly to see if this gives a better balance. Continue good sleep hygiene. Reassess at 2-month follow-up visit. Assessment & Plan (01/08/2024 5:17 PM EDT): Comorbid with anxiety and depression for which the patient has received notable response to use of Remeron 15 mg at nighttime, and improved with increase of Remeron to 30 mg at nighttime as of 07/13/2023 felt to be better at the lower dose of Remeron 15 mg nightly, which was decreased back down to that dose on 12/07/2023. Continue good sleep hygiene. Reassess at February 2024 visit. Assessment & Plan (12/07/2023 9:18 AM EDT): Comorbid with anxiety and depression for which the patient has received notable response to use of Remeron 15 mg at nighttime, and improved with increase of Remeron to 30 mg at nighttime as of 07/13/2023. She is sleeping well at nighttime with the medicine she is finding at the 30 mg dose is more likely to give her some morning time sedation, as such as she is otherwise had good stability with her mood and her sleep we will decrease to Remeron 15 mg nightly as of today 12/07/2023. Continue good sleep hygiene. Reassess at 3-month follow-up visit, sooner as needed. Assessment & Plan (10/01/2023 10:13 AM EDT): Comorbid with anxiety and depression for which the patient has received notable response to use of Remeron 15 mg at nighttime, and improved with increase of Remeron to 30 mg at nighttime as of 07/13/2023. Currently pleased with regimen and sleep pattern. Continue good sleep hygiene. Advise concerns. Assessment & Plan (07/09/2023 5:30 PM EDT): Comorbid with anxiety and depression for which the patient has received notable response to use of Remeron 15 mg at nighttime. With some breakthrough anxiety and sleep difficulty pattern, increase Remeron to 30 mg at nighttime, continue otherwise buspirone unchanged. Continue good sleep hygiene. Assessment & Plan (05/04/2023 1:03 PM EST): Comorbid with anxiety and depression for which the patient has received axil response to use of Remeron 15 mg at nighttime. She continues to sleep better through the night. Continue good sleep hygiene, we will continue Remeron 15 mg unchanged. Do caution potential oversedation with additional use of gabapentin but at lower dose of 100 mg as needed for the next week or 2 to help benefit some of the radicular pain on the right lower extremity. Assessment & Plan (03/03/2023 5:52 PM EST): Comorbid with anxiety and depression for which the patient has received axil response to use of Remeron 15 mg at nighttime. She is sleeping better, through the night, and cannot remember the last time she has been sleeping as well for many years. Continue good sleep hygiene, we will continue Remeron 15 mg unchanged. Need for vaccination 11/06/2022 Assessment & Plan (12/07/2023 9:17 AM EDT): Declines flu vaccine. Assessment & Plan (11/06/2022 3:30 PM EDT): Pneumococcal 20 valent vaccine given based on asthmatic history. Acquired hypothyroidism 08/21/2022 Assessment & Plan (10/14/2024 8:33 AM EDT): Most recent laboratory investigation 07/22/2024 with TSH [...] T4 on 10/14/2024 with management per results Assessment & Plan (07/22/2024 2:28 PM EDT): Most recent laboratory investigation 12/07/2023 with TSH mildly increased at 7.940 and free T4 normal at 1.02, prior to that 11/06/2022 with normalized TSH 1.690 and free T4 1.12, Prior 09/01/2022 TSH low at 0.018, free T41.96. With blood work 12/07/2023 we adjusted up levothyroxine from 75 mcg up to 88 mcg daily. We need to recheck TSH and free T4 today 07/22/2024, with management per results. Assessment & Plan (12/07/2023 9:12 AM EDT): Most recent laboratory investigation 11/06/2022 with normalized TSH 1.690 and free T41.12, back on levothyroxine 75 mcg daily compared to levothyroxine 88 mcg daily. Prior 09/01/2022 TSH low at 0.018, free T41.96 While on levothyroxine 88 mcg daily. Patient feels clinically euthyroid and actually feels as good as she has for quite a while. Of note she apparently had normal thyroid function in the ER when seen 07/07/2023 , [facility]. Recheck TSH and free T4 with blood work 12/07/2023. Management per results. Assessment & Plan (10/01/2023 10:09 AM EDT): Most recent laboratory investigation 11/06/2022 with normalized TSH 1.690 and free T41.12, back on levothyroxine 75 mcg daily compared to levothyroxine 88 mcg daily. Prior 09/01/2022 TSH low at 0.018, free T41.96 While on levothyroxine 88 mcg daily. Patient feels clinically euthyroid and actually feels as good as she has for quite a while. Of note she apparently had normal thyroid function in the ER when seen 07/07/2023 , [facility] but I await those records to verify. Recheck with next blood work planned for November 2023. Assessment & Plan (07/09/2023 5:22 PM EDT): Most recent laboratory investigation 11/06/2022 with normalized TSH 1.690 and free T41.12, back on levothyroxine 75 mcg daily compared to levothyroxine 88 mcg daily. Prior 09/01/2022 TSH low at 0.018, free T41.96 While on levothyroxine 88 mcg daily. Patient feels clinically euthyroid and actually feels as good as she has for quite a while. Of note she apparently had normal thyroid function in the ER when seen 07/07/2023 , [facility] but I await those records to verify. Recheck with next blood work. Assessment & Plan (03/03/2023 5:49 PM EST): Most recent laboratory investigation 11/06/2022 with normalized TSH 1.690 and free T41.12, back on levothyroxine 75 mcg daily compared to levothyroxine 88 mcg daily. Prior 09/01/2022 TSH low at 0.018, free T41.96 While on levothyroxine 88 mcg daily. Patient feels clinically euthyroid and actually feels as good as she has for quite a while. Recheck with next blood work. Assessment & Plan (01/27/2023 5:12 PM EST): Most recent laboratory vesication's 11/06/2022 with normalized TSH 1.690 and free T41.12, back on levothyroxine 75 mcg daily compared to levothyroxine 88 mcg daily. Prior 09/01/2022 TSH low at 0.018, free T41.96 While on levothyroxine 88 mcg daily. Patient feels fine on this dosing, continue unchanged. Check with next blood work. Assessment & Plan (11/06/2022 2:02 PM EDT): Most recent blood work with 09/01/2022 TSH low at 0.018, free T41.96 On levothyroxine 88 mcg daily, such we decreased back to 75 mcg daily and will recheck TSH and free T4 today. Most recent previous to that on 10/08/2021 with TSH at 5.11 with normal range 0.34-4.8, free T4 0.87 with normal range 0.76-1.46, at which point we increased from 75 mcg up to 88 mcg daily of levothyroxine. Comparison 04/29/2021 TSH elevated at 7.60, free T4 lower limit of normal at 0.78, 06/15/2020 with TSH 4.44, free T4 0.92, when she was taking levothyroxine 50 g daily. Recheck TSH and free T4 at this time with management per results. Assessment & Plan (08/21/2022 4:00 PM EDT): Most recent 10/08/2021 with TSH at 5.11 with normal range 0.34-4.8, free T4 0.87 with normal range 0.76-1.46, after initiating levothyroxin 75 g daily. Comparison 04/29/2021 TSH elevated at 7.60, free T4 lower limit of normal at 0.78, 06/15/2020 with TSH 4.44, free T4 0.92, when she was taking levothyroxine 50 g daily. I had increased to levothyroxine 88 mcg daily in summer 2021 but she is not rechecked since, she will come by for blood work which has been ordered in the next couple weeks with management per results. Routine general medical exam ination at a health care facility 08/21/2022 Assessment & Plan (12/07/2023 9:18 AM EDT): Last blood work 09/01/2022 including negative HIV and hepatitis C virus screening. Repeat blood work completed 12/07/2023, management per results. Tdap given 2018 up-to-date. Pap smear obtained through Dr. Morgan in [place] in April 2022 which was negative with 3-year follow-up recommended. Based on asthmatic history, pneumococcal 20 valent vaccine given 11/06/2022. Assessment & Plan (11/06/2022 1:59 PM EDT): Last blood work 09/01/2022. Tdap given 2018 up-to-date. Pap smear obtained through Dr. Morgan in [place] and April 2022 which was negative with 3-year follow-up recommended. Based on asthmatic history, pneumococcal 20 valent vaccine given 11/06/2022. Assessment & Plan (08/21/2022 4:02 PM EDT): Last blood work 04/29/2021. Order provided to complete blood work at the next week or 2 at convenience, patient will come by the clinic as she has a telemedicine visit today. Tdap given 2018 up-to-date. Pap smear obtained through Dr. Morgan in [place] and April 2022 which was negative with 3-year follow-up recommended. Viral syndrome 03/03/2022 Assessment & Plan (09/20/2024 4:12 PM EDT): Rapid strep COVID-19 and influenza screens all [...] significant worsening of symptoms in the interim Assessment & Plan (03/03/2022 5:55 PM EST): COVID-19 positive, flu screen negative. Common in the community at this time. Onset of symptoms yesterday, such appropriate quarantine and and work notes provided. Patient not high risk for qualifying for other medicine such as Paxlovid. Recommend symptomatic treatment saline spray, cool-mist humidifier, Tylenol/Advil for the next few days, then as needed. Cautioned signs and symptoms of worsening lower respiratory symptoms. Advise if not improving. Palpitations 11/14/2021 Raynaud's syndrome without gangrene 11/14/2021 Chronic neck pain 11/14/2021 Overview (11/14/2021): Chronic neck pain secondary to early cervical disc disease, status post most recent MRI of the C-spine on 06/02/2013 showing mild cervical kyphoscoliosis, slight anterior and posterior spurring at multiple levels, with no disc herniation, spinal stenosis or neural foraminal encroachment. Neurosurgical evaluation by Dr. Hickey recommended conservative treatment. Anxiety and depression 11/14/2021 Assessment & Plan (10/14/2024 8:34 AM EDT): Anxiety and depressive symptoms with more anxiety [...] daily resulted in feeling poorly. Per her [employer] testing results she would be appropriate for [...] in June 2023 led to completion of [facility] form for work for work to allow her to have some periodically based on stressors with [facility] based paperwork initially 11/14/2021, then 11/14/2022, and last time 01/08/2024. This [facility]'s paperwork documents the potential work restrictions from significant emotional difficulties/anxiety where she may have to miss certain days at random amounts of time pending her stress triggers. I continue to recommend lifestyle modifications to benefit mood, especially considering resumption of regular exercise. Reassess at follow-up visit. Assessment & Plan (07/22/2024 2:30 PM EDT): Anxiety and depressive symptoms with more anxiety [...] daily resulted in feeling poorly. Per her [employer] testing results she would be appropriate for [...] as such as of about April 2024 would stop the mirtazapine while she is in the state in the morning she does feel that she is having a bit more trouble sleeping has had some mild breakthrough anxiety and depressive symptoms, as such we will resume at mirtazapine 50 mg to take only half tablet nightly to see if this can be a better balance for her. Of note previous significant stressors in June 2023 led to completion of [facility] form for work for work to allow her to have some periodically based on stressors with [facility] based paperwork initially 11/14/2021, then 11/14/2022, and last time 01/08/2024. This [facility]'s paperwork documents the potential work restrictions from significant emotional difficulties/anxiety where she may have to miss certain days at random amounts of time pending her stress triggers. I continue to recommend lifestyle modifications to benefit mood, especially considering resumption of regular exercise. With resumption of mirtazapine at lower dose we will follow-up in 2 months, sooner as needed. Assessment & Plan (01/08/2024 5:18 PM EDT): Anxiety and depressive symptoms with more anxiety [...] daily resulted in feeling poorly. Per her [employer] testing results she would be appropriate for Viibryd (not tolerated), Pristiq, Trintellix, and Remeron. With her comorbid sleep difficulty, initiation on 01/27/2023 of low-dose mirtazapine 15 mg at nighttime, titrated on 07/11/2023 to mirtazapine to 30 mg at nighttime. Additional buspirone 7.5 mg twice daily but she is has to transition back more to as needed use. Overall she feels she is doing well in the regimen but the mirtazapine seems to be causing some morning time sedation, and as such we decrease back down to and she is done very well with continued good sleep pattern and ongoing benefit of mood. She is very pleased with how she is doing with his combination of mirtazapine and buspirone mirtazapine 15 mg nightly as of 12/07/2023, she is doing very well from the perspective of sleep and her mood. We will continue unchanged. Of note, regarding the significance of her anxiety flare resulting in ER evaluation 07/07/2023, discussions with her work resulted in recommendation to consider 3-month work leave to target counseling and potentially titration of medicines in the interim. As such I did complete paperwork stating the appropriateness of this 3-month leave to return to work on and is doing satisfactorily 10/08/2023. Previously I have completed [facility] based paperwork initially 11/14/2021, then 11/14/2022, and again today on 01/08/2024. This [facility]'s paperwork documents the potential work restrictions from significant emotional difficulties/anxiety where she may have to miss certain days at random amounts of time pending her stress triggers. She is overall doing better at this time and as such I think she will need to use this much less frequently but again this has been documented for another year as of 01/08/2024. Continue recommendation of counseling, in addition to lifestyle modifications to benefit mood, especially considering resumption of regular exercise. Reassess at follow-up visit. Assessment & Plan (12/07/2023 9:17 AM EDT): Anxiety and depressive symptoms with more anxiety [...] daily resulted in feeling poorly. Per her [employer] testing results she would be appropriate for Viibryd (not tolerated), Pristiq, Trintellix, and Remeron. With her comorbid sleep difficulty, initiation on 01/27/2023 of low-dose mirtazapine 15 mg at nighttime, titrated on 07/11/2023 to mirtazapine to 30 mg at nighttime. Additional buspirone 7.5 mg twice daily but she is has to transition back more to as needed use. Overall she feels she is doing well in the regimen but the mirtazapine seems to be causing some morning time sedation, even though it is helping her sleep. As such we will cautiously decrease back to mirtazapine 15 mg nightly as of 12/07/2023, monitor closely mood and sleep pattern. Of note, regarding the significance of her anxiety flare resulting in ER evaluation 07/07/2023, discussions with her work resulted in recommendation to consider 3- month work leave to target counseling and potentially titration of medicines in the interim. As such I did complete paperwork stating the appropriateness of this 3- month leave to return to work on and is doing satisfactorily 10/08/2023. Previously I have completed [place] based paperwork initially 11/14/2021 stating the same related to potential work from significant emotional difficulties, which is still active at work. Continue recommendation of counseling, in addition to lifestyle modifications to benefit mood, especially considering resumption of regular exercise. Reassess at 3-month follow-up visit. Assessment & Plan (10/01/2023 10:12 AM EDT): Anxiety and depressive symptoms with more anxiety [...] 20 mg daily resulted in feeling poorly. Current buspirone 7.5 mg twice daily with some benefit but still some breakthrough symptoms with ongoing stressors of life, although she is not using regularly and I have recommended trying to do so. Per her [employer] testing results she would be appropriate for Viibryd (not tolerated), Pristiq, Trintellix, and Remeron. With her comorbid sleep difficulty, initiation on 01/27/2023 of low-dose Remeron 15 mg at nighttime, with notable benefit of her mood as well as sleep pattern. Titration on 07/11/2023 to mirtazapine to 30 mg at nighttime, continue buspirone at 7.5 mg twice daily. She feels this has been only beneficial when she is sleeping even better in the increased dose of Remeron seems to be benefiting her mood. She also was referred to psychiatry who ultimately not taken of her medicine but she is initiated counseling every 2 weeks and she feels that is been beneficial especially to implement better social techniques. We will continue regimen unchanged. At this time the patient prefers me to maintain medication prescribing, but if necessary in the future we could transition this to psychiatry. Reassess at follow-up. Of note, regarding the significance of her anxiety flare resulting in ER evaluation 07/07/2023, discussions with her work resulted in recommendation to consider 3- month work leave to target counseling and potentially titration of medicines in the interim. As such I did complete paperwork stating the appropriateness of this 3- month leave and she is planning to return for 10/08/2023. She feels she is doing better, counseling has helped and she feels her medicine regimen is doing well and she is ready to return to work, and as stated in note stating the appropriateness of the same., Previously I have completed FMLA based paperwork initially 11/14/2021 stating the same related to potential work from significant emotional difficulties, which is still active at work. Continue recommendation of counseling, in addition to lifestyle modifications to benefit mood, especially considering resumption of regular exercise. Assessment & Plan (07/09/2023 5:31 PM EDT): Anxiety and depressive symptoms with more anxiety [...] 20 mg daily resulted in feeling poorly. Current buspirone 7.5 mg twice daily with some benefit but still some breakthrough symptoms with ongoing stressors of life, although she is not using regularly and I have recommended trying to do so. Per her [employer] testing results she would be appropriate for Viibryd (not tolerated), Pristiq, Trintellix, and Remeron. With her comorbid sleep difficulty, initiation on 01/27/2023 of low-dose Remeron 15 mg at nighttime, with notable benefit of her mood as well as sleep pattern. Unfortunate despite this improvement she had notable exacerbation of anxiety resulting in chest pain and ER evaluation 07/07/2023. With this she would be interested in titrating up the dose of mirtazapine to 30 mg at nighttime and continue buspirone unchanged. Otherwise, the significance of her anxiety flare resulting in ER evaluation 07/07/2023, discussions with her work resulted in recommendation to consider 3-month work leave to target counseling and potentially titration of medicines in the interim. I think this is reasonable and have preliminarily provided a note stating the benefit of the same, although I do suspect there will be paperwork that will need to be completed based on this. Furthermore based on the significance pattern I think at this time would be appropriate to have her seen by psychiatry and I will refer in that regard, as well as initiate counseling with numbers provided. I have completed FMLA based paperwork initially 11/14/2021 stating the same related to potential work from significant emotional difficulties, which is still active at work. Continue recommendation of counseling, in addition to lifestyle modifications to benefit mood, especially considering resumption of regular exercise. She will be seen by psychiatry in the interim I will not schedule as soon, but I will still reassess at 3-month follow-up, sooner as needed. Of note, provided for work as the statement: As per patient discussions with work, with ongoing mental health struggles, as has been previously discussed, and with completion of prior FMLA forms for work, I feel patient would benefit from a Mental Health Leave , which requires a minimum 3 month time frame, which I feel is reasonable. As such, would recommend such leave over timeframe of 07/09/2023 to 10/08/2023. Assessment & Plan (03/03/2023 5:51 PM EST): Anxiety and depressive symptoms with more anxiety [...] 20 mg daily resulted in feeling poorly. Current buspirone 7.5 mg twice daily with some benefit but still some breakthrough symptoms with ongoing stressors of life, although she is not using regularly and I have recommended trying to do so. Per her [employer] testing results she would be appropriate for Viibryd (not tolerated), Pristiq, Trintellix, and Remeron. With her comorbid sleep difficulty, initiation on 01/27/2023 of low-dose Remeron 15 mg at nighttime, and she has done extremely well. She feels this is helping her sleep and she slept the best she has in years, and her mood is doing well, she is handling her stressors better. As such we will continue unchanged. Continue recommendation of counseling, in addition to lifestyle modifications to benefit mood, especially considering resumption of regular exercise. I completed an employee accommodation request form on 11/14/2021, that in essence provides request for periodic need to miss work when she is having significant emotional difficulties related to these anxiety and depressive symptoms. She will likely need a yearly form stating the same. Of note at this time in January 2023 there is discussion that with work there will be significant changes going on for a month or 2 starting in February 2023 and work has concerns that this may be significant stressor and she might benefit from having a couple months off from work at that time. As she is doing much better now I do not feel we need to commit to this pattern but if necessary we could potentially complete such paperwork. Advise concerns. Assessment & Plan (01/27/2023 5:15 PM EST): Anxiety and depressive symptoms with more anxiety [...] attempted fall 2021 unfortunately caused her to feel the blahs , with no ambition to do things, and she stopped it. Most recently Viibryd 20 mg daily unfortunately caused her to just generally feel poorly with no specific complaint, says she has stopped. Current buspirone 7.5 mg twice daily with some benefit but still some breakthrough symptoms with ongoing stressors of life, although she is not using regularly and I have recommended trying to do so. Per her [employer] testing results she would be appropriate for Viibryd (not tolerated), Pristiq, Trintellix, and Remeron. With her comorbid sleep difficulty, initiate low-dose Remeron 15 mg at nighttime, follow-up in 1 month's time to reassess. Continue recommendation of counseling, in addition to lifestyle modifications to benefit mood, especially considering resumption of regular exercise. I completed an employee accommodation request form on 11/14/2021, that in essence provides request for periodic need to miss work when she is having significant emotional difficulties related to these anxiety and depressive symptoms. She will likely need a yearly form stating the same. Of note at this time in January 2023 there is discussion that with work. Have significant changes going on for a month or 2 starting in February 2023 and work has concerns that this may be significant stressor and she might benefit from having a couple months off from work at that time. I do not feel comfortable committing to that at this point as we do not know how she will handle it, but I plan to follow up in 1 months time which will be about a week after this starts and we will see how she is doing. If ultimately she is having struggles in that regard, we could consider completing documentation from work stating she might benefit from some time off until the transitions at work settle. Follow-up 1 month, sooner as needed. Assessment & Plan (11/06/2022 2:04 PM EDT): Anxiety and depressive symptoms with more anxiety [...] attempted fall 2021 unfortunately caused her to feel the blahs , with no ambition to do things, and she stopped it. Current buspirone 7.5 mg twice daily with some benefit but still some breakthrough symptoms with ongoing stressors of life. Per her [employer] testing results she would be appropriate for Viibryd or Pristiq, such we will initiate Viibryd 20 mg take 1 tablet every other day for 10 days and daily. Plan to reassess at 2-month follow-up. Continue recommendation of counseling, in addition to lifestyle modifications to benefit mood, especially considering resumption of regular exercise. I completed an employee accommodation request form again on 11/14/2021, that in essence provides request for periodic need to miss work when she is having significant emotional difficulties related to these anxiety and depressive symptoms. From work, she is going to bring by another form that is due yearly as of summer 2022, to really state the same. Follow-up otherwise in 2 months to reassess, sooner as needed. Assessment & Plan (08/21/2022 3:59 PM EDT): Anxiety and depressive symptoms with more anxiety [...] attempted fall 2021 unfortunately caused her to feel the blahs , with no ambition to do things, and she stopped it. Current buspirone 7.5 mg twice daily with benefit although she is even only using that usually at nighttime. Overall she is doing better now but does admit that a lot of times in the winter months she has some seasonal pattern to her anxiety and depression. As she has been difficult for treatment I would like to add a [employer] testing which rule out genetic testing to see if there may be certain mood medications would be best for her. This will be done with her pending blood work. Continue recommendation of counseling, in addition to lifestyle modifications to benefit mood, especially considering resumption of regular exercise. I completed an employee accommodation request form again on 11/14/2021, that in essence provides request for periodic need to miss work when she is having significant emotional difficulties related to these anxiety and depressive symptoms. Advise any worsening, reassess at 3-month follow-up. Assessment & Plan (01/30/2022 4:11 PM EST): Comorbid anxiety depression with more anxiety predominant symptoms. Historically she has been on different SSRI medications including Zoloft 25 mg daily, fluoxetine 10 mg tablet daily, Celexa, with overall the SSRI therapy potentially gave benefit but did cause some side effects, including fluoxetine with irritability, Celexa with unusual thoughts, Zoloft with headache. Subsequent venlafaxine from 2018 resulted in GI side effects. Wellbutrin as started December 2020 equivocal benefit, but no notable side effects. Low-dose Cymbalta attempted fall 2021 unfortunately caused her to feel the blahs , with no ambition to do things, and she stopped it. Generally she has tolerated buspirone and she continues on buspirone 7.5 mg twice daily, with modest but incomplete benefit of her anxiety and depressive symptoms. She would be interested in trying Lexapro, while it is similar to Celexa it can have a different side effect profile, we will do low-dose 5 mg daily. She had been going to a counselor but did not feel that she connected and I provided new phone numbers today 01/30/2022 to try somebody else as I think will benefit, and she agrees. Continue lifestyle modifications to benefit mood, especially considering resumption of regular exercise. I have also completed an employee accommodation request form again on 11/14/2021, that in essence provides request for periodic need to miss work when she is having significant emotional difficulties related to these anxiety and depressive symptoms. Assessment & Plan (11/14/2021 9:35 AM EDT): Comorbid anxiety depression with more anxiety predominant symptoms. Historically she has been on different SSRI medications including Zoloft 25 mg daily, fluoxetine 10 mg tablet daily, Celexa prior to that, with additional buspirone as needed. Overall the SSRI therapy did cause some side effects, including fluoxetine with irritability, Celexa with unusual thoughts, Zoloft with headache, venlafaxine from 2018 sindhu GI side effects. Wellbutrin as started December 2020 equivocal benefit. Currently taking buspirone 7.5 mg twice daily, with good anxiety control the breakthrough depressive symptoms. Addition on 10/08/2021 of Cymbalta 20 mg daily, with thus far modest benefit but its only been a month, we will continue dose but consider increasing at follow-up. Continue recommending benefits of counseling, she will consider. Continue lifestyle modifications to benefit mood, especially considering resumption of regular exercise. I have also completed an employee accommodation request form again today on 11/14/2021, completed last on 11/02/2020, that in essence provides request for periodic need to miss work when she is having significant emotional difficulties related to these anxiety and depressive symptoms. Gastroesophageal reflux disease without esophagi tis 11/14/2021 Assessment & Plan (10/14/2024 8:35 AM EDT): Status post hiatal hernia repair with fundoplication by Dr. Gaona has in December 2019 with good benefit, after EGD by Dr. Templeton 09/05/2019 showing hiatal hernia with esophagitis in the gastroesophageal junction compatible with esophagitis. She was seen April [address] Gaona, who repeated EGD 05/24/2021, showing some gastritis and ulcer this gastroesophageal junction. Since that time she is overall doing better as long as she avoids spicy or acidic foods. Resumption of omeprazole 20 mg daily of regularity on 01/27/2023, which she does feel that she does fairly well with this way but if she misses the doses too much she will have breakthrough symptoms. As such we will continue unchanged. Continue reflux precautions. No new concerns as of 10/14/2024. Assessment & Plan (07/22/2024 2:31 PM EDT): Status post hiatal hernia repair with fundoplication by Dr. Gaona has in December 2019 with good benefit, after EGD by Dr. Templeton 09/05/2019 showing hiatal hernia with esophagitis in the gastroesophageal junction compatible with esophagitis. She was seen April [address] Gaona, who repeated EGD 05/24/2021, showing some gastritis and ulcer this gastroesophageal junction. Since that time she is overall doing better as long as she avoids spicy or acidic foods. Resumption of omeprazole 20 mg daily of regularity on 01/27/2023, which she does feel that she does fairly well with this way but if she misses the doses too much she will have breakthrough symptoms. As such we will continue unchanged. Continue reflux precautions. Advise concerns. Assessment & Plan (12/07/2023 9:17 AM EDT): Status post hiatal hernia repair with fundoplication by Dr. Gaona has in December 2019 with good benefit, after EGD by Dr. Templeton 09/05/2019 showing hiatal hernia with esophagitis in the gastroesophageal junction compatible with esophagitis. She was seen April [address] Gaona, who repeated EGD 05/24/2021, showing some gastritis and ulcer this gastroesophageal junction. Since that time she is overall doing better as long as she avoids spicy or acidic foods. Resumption of omeprazole 20 mg daily of regularity on 01/27/2023, which she uses most days with benefit. Nonetheless if she is done well for the better part of a month or 2 I recommended trying to transition it to as needed use and she will do so. Continue reflux precautions. Advise concerns. Assessment & Plan (10/01/2023 10:12 AM EDT): Status post hiatal hernia repair with fundoplication by Dr. Gaona has in December 2019 with good benefit, after EGD by Dr. Templeton 09/05/2019 showing hiatal hernia with esophagitis in the gastroesophageal junction compatible with esophagitis. She was seen April [address] Gaona, who repeated EGD 05/24/2021, showing some gastritis and ulcer this gastroesophageal junction. Since that time she is overall doing better as long as she avoids spicy or acidic foods. Resumption of omeprazole 20 mg daily of regularity on 01/27/2023, which she is transition now to as needed use with rare need for medicine. Continue reflux precautions. Advise recurrence. Assessment & Plan (03/03/2023 5:52 PM EST): Status post hiatal hernia repair with fundoplication by Dr. Gaona has in December 2019 with good benefit, after EGD by Dr. Templeton 09/05/2019 showing hiatal hernia with esophagitis in the gastroesophageal junction compatible with esophagitis. She was seen April [address] Gaona, who repeated EGD 05/24/2021, showing some gastritis and ulcer this gastroesophageal junction. Since that time she is overall doing better as long as she avoids spicy or acidic foods. Resumption of omeprazole 20 mg daily of regularity on 01/27/2023 and it has improved some of her breakthrough GERD type symptoms. As such would like her to continue this for another couple months and if she is doing well she can consider transitioning again to as needed use. Assessment & Plan (01/27/2023 5:13 PM EST): Status post hiatal hernia repair with fundoplication by Dr. Gaona has in December 2019 with good benefit, after EGD by Dr. Templeton 09/05/2019 showing hiatal hernia with esophagitis in the gastroesophageal junction compatible with esophagitis. She was seen April [address] Gaona, who repeated EGD 05/24/2021, showing some gastritis and ulcer this gastroesophageal junction. Since that time she is overall doing better as long as she avoids spicy or acidic foods. Still use of omeprazole 20 mg daily and little burst if she has flares, but generally does well with no sticking sensation of the throat. Continue reflux precautions. Advise any worsening. Assessment & Plan (11/06/2022 3:29 PM EDT): Status post hiatal hernia repair with fundoplication by Dr. Gaona has in December 2019 with good benefit, after EGD by Dr. Templeton 09/05/2019 showing hiatal hernia with esophagitis in the gastroesophageal junction compatible with esophagitis. She was seen April [address] Gaona, who repeated EGD 05/24/2021, showing some gastritis and ulcer this gastroesophageal junction. Since that time she is overall doing better as long as she avoids spicy or acidic foods. She has had a little bit more flare over the last few months, as such I like to resume omeprazole 20 mg daily for the next 2 to 3 months and if she is doing well she can then wean back off. Advise any worsening. Assessment & Plan (08/21/2022 4:01 PM EDT): Status post hiatal hernia repair with fundoplication by Dr. Gaona has in December 2019 with good benefit, after EGD by Dr. Templeton 09/05/2019 showing hiatal hernia with esophagitis in the gastroesophageal junction compatible with esophagitis. She was seen April [address] Gaona, who repeated EGD 05/24/2021, showing some gastritis and ulcer this gastroesophageal junction. Since that time she is overall doing better as long as she avoids spicy or acidic foods, with modest flare that responds to antacid. Advise any worsening. Seasonal allergic rhinitis due to pollen Assessment & Plan (10/14/2024 8:35 AM EDT): Seasonal pattern of allergies more spring and [...] flushing. No new concerns as of 10/14/2024 Assessment & Plan (07/22/2024 2:32 PM EDT): Seasonal pattern of allergies more spring and [...] nasal flushing. No new concerns as of 07/22/2024. Assessment & Plan (01/08/2024 5:20 PM EDT): Seasonal pattern of allergies more spring and fall, with good response to use of Flonase, Claritin and Singulair seasonally. General use antihistamine much as it makes her feel a bit funny. Modest flare at this time but not enough that she is needing to use her medicine regularly, although caution secondary asthmatic component. Additional benefit of saline spray, nasal flushing. Advise concerns. Assessment & Plan (12/07/2023 9:19 AM EDT): Seasonal pattern of allergies more spring and fall, with good response to use of Flonase, Claritin and Singulair seasonally. General use antihistamine much as it makes her feel a bit funny. Additional benefit of saline spray, nasal flushing. Advise concerns. Assessment & Plan (10/01/2023 10:13 AM EDT): Seasonal pattern of allergies more spring and fall, with good response to use of Flonase, Claritin and Singulair seasonally. Using her medicines with benefit but she has had good stability she can try to wean off the regimen and transition as needed use. Additional benefit of saline spray, nasal flushing. Advise concerns. Assessment & Plan (04/21/2023 4:10 PM EST): Seasonal pattern of allergies more spring and fall, with good response to use of Flonase, Claritin and Singulair seasonally. On exam she does have some modest fluid behind the TMs bilaterally but not consistent with otitis media. The ear pain is ultimately felt to be from left otitis externa. Resume allergy medicines the next couple weeks, then as needed. Additional benefit of saline spray, nasal flushing. Advise concerns. Assessment & Plan (11/06/2022 3:30 PM EDT): Seasonal pattern of allergies more spring and fall, with good response to use of Flonase, Claritin and Singulair seasonally. Additional benefit of saline spray, nasal flushing. Advise concerns. Assessment & Plan (08/21/2022 4:02 PM EDT): Fairly good response to Flonase and Claritin but still some breakthrough symptoms at this time. Refills provided, with additional Singulair 10 mg chewable tablet to be used all 3 together for the next couple weeks, and as needed. Additional benefit of saline spray, nasal flushing. Advise concerns. Assessment & Plan (01/30/2022 4:14 PM EST): Continue good response to as needed use of Flonase and Claritin, with some modest symptoms breaking through I discussed Singulair and she is not interested at this time. Continue other medications unchanged. Advised that she would want a try Singulair in the future. Of note some mild asthmatic tendency which has not been flaring. Additional benefit of saline spray, nasal flushing, cool-mist humidifier. Assessment & Plan (11/14/2021 9:34 AM EDT): Good response as needed but infrequent use Flonase, Claritin. Continue unchanged. We could add Singulair in the future. Some potential trigger of her asthmatic tendency. Continue as needed benefit of saline spray, cool-mist humidifier. Intrinsic asthma without sta tus asthmaticus without complication 11/14/2021 Assessment & Plan (10/14/2024 8:35 AM EDT): Mild intermittent asthma pattern, generally doing currently well, although typical triggers with viruses and allergies. Recommend caution with allergy triggers that they could exacerbate this asthmatic component as well. Advise any increased use of inhaler more than a couple times weekly. No new concerns as of 10/14/2024. Assessment & Plan (07/22/2024 2:31 PM EDT): Mild intermittent asthma pattern, generally doing currently well, although typical triggers with viruses and allergies. Recommend caution with allergy triggers that they could exacerbate this asthmatic component as well. Advise any increased use of inhaler more than a couple times weekly. No new concerns as of 07/22/2024. Assessment & Plan (01/08/2024 5:16 PM EDT): Mild intermittent asthma pattern, generally doing currently well, although typical triggers with viruses and allergies. Recommend caution with allergy triggers that they could exacerbate this asthmatic component as well. Advise any increased use of inhaler more than a couple times weekly. Advise concerns. Assessment & Plan (12/07/2023 9:17 AM EDT): Mild intermittent asthma pattern, foot she has rare need for rescue inhaler but is out of refills, such provided today. Potential triggers include viruses and allergies and she is aware. Advised any increased use more than once every week or so. Assessment & Plan (01/27/2023 5:18 PM EST): Mild intermittent asthma pattern, foot she has rare need for rescue inhaler but is out of refills, such provided today. Potential triggers include viruses and allergies and she is aware. Advised any increased use more than once every week or so. Assessment & Plan (11/06/2022 3:30 PM EDT): Mild intermittent pattern for which she typically triggers with allergies or viruses. Currently not requiring rescue inhaler, we could refill in future as necessary. Advise worsening. Assessment & Plan (08/21/2022 4:01 PM EDT): Mild intermittent pattern for which she typically triggers with allergies or viruses. Currently not requiring rescue inhaler, we could refill in future as necessary. Advise worsening. Assessment & Plan (11/14/2021 9:33 AM EDT): Mild pattern typically flares with allergies or viruses, currently doing well with no recent need for rescue inhaler use. Treat allergies to minimize flares. Resolved Problems Problem Noted Date Diagnosed Date Resolved Date Bipolar disorder 11/14/2021 08/21/2022 Recurrent major depressive d isorder, in partial remission 11/14/2021 08/21/2022 Assessment & Plan (01/30/2022 4:09 PM EST): Comorbid with anxiety, see assessment plan for anxiety for details. Assessment & Plan (11/14/2021 9:35 AM EDT): See details of assessment plan for anxiety for comorbid depression discussion. Encounters Date Type Department Care Team Description 10/19/2024 Refill [facility] [place] [address] Juan Hameed MD Anxiety and depression; Psychophysiological insomnia 10/17/2024 Results Follow-Up [facility] [place] [place] [address] Juan Hameed MD 10/15/2024 Refill [facility] [place] [place] [address] [address] [address] Juan Hameed MD Acquired hypothyroidism 10/14/2024 8:30 AM EDT Office Visit [facility] [place] [address] [address] Juan Hameed MD Anxiety and depression (Primary Dx); Psychophysiological insomnia; Acquired hypothyroidism; Gastroesophageal reflux disease without esophagitis; Mild intermittent intrinsic asthma without status asthmaticus without complication; Seasonal allergic rhinitis due to pollen; Tinea corporis 10/14/2024 Travel 09/20/2024 3:00 PM EDT Office Visit [facility] [address] [place] [address] [place] [address] Aleksandr Hameed MD Viral syndrome (Primary Dx); Acute pharyngitis, unspecified etiology 09/20/2024 Travel from Last 3 Months Immunizations Immunization Administration Dates Next Due COVID-19 (UNSPECIFIED) 03/09/2021,08/10/2020 Pneumococcal Conjugate 20-Valent (PCV20) 023 Tdap 12/14/2018 Family History Medical History Relation Name Comments Heart disease Maternal Grandfather Breast cancer Maternal Grandmother Heart disease Maternal Grandmother Breast cancer Maternal Great-Grandmother Cervical cancer Maternal Great-Grandmother Cancer Mother ovarian Heart disease Mother Relation Name Status Comments Father Alive Maternal Grandfather Maternal Grandmother Maternal Great-Grandmother Mother Alive Social History Tobacco Use Types Packs/Day Years Used Date Smoking Tobacco: Never Smokeless Tobacco: Never Tobacco Cessation:Counseling Given: No Alcohol Use Standard Drinks/Week Comments No 0 [...] on file Sexual Orientation Not on file Last Filed Vital Signs Vital Sign Reading [...] Mass Index 19.31 10/14/2024 8:13 AM EDT Plan of Treatment Upcoming Encounters Date Type Department Care Team (Late st Contact Info) Description 12/16/2024 8:45 AM EDT Office Visit [facility] [address] [place] [address] Juan Hameed MD [address] [place] [address] Health Maintenance Due Date Last Done Comments Annual Gynecologic Pelvic and Breast Exam 1985 COVID-19 Vaccine ( season) 2023, 08/10/2020 ANNUAL PHYSICAL 12/06/2024 12/07/2023 INFLUENZA VACCINE 12/21/2024 PAP SMEAR 04/23/2025 04/23/2022 TDAP/TD VACCINES (2 - Td or Tdap) 12/14/2028 019 HEPATITIS C SCREENING Completed 09/01/2022 Pneumococcal Vaccine 0-49 Completed 11/06/2022 Procedures Procedure Name Priority Date/Time Associated Diagnosis Comments T4, FREE Routine 10/14/2024 8:34 AM EDT Acquired hypothyroidism TSH Routine 10/14/2024 8:34 AM EDT Acquired hypothyroidism POC FLU + SARS ANTIGEN CELENA Routine 09/20/2024 3:33 PM EDT Viral syndrome Acute pharyngitis, unspecified etiology POCT RAPID STREP A Routine 09/20/2024 3: 33 PM EDT Viral syndrome Acute pharyngitis, unspecified etiology HEPATITIS C ANTIBODY Routine 09/01/2022 2:30 PM EDT Routine general medical examination at a health care facility from Last 3 Months or Most Recently Relevant to Health Maintenance Results * TSH (10/14/2024 8:34 AM EDT) [facility] TSH 1.410 0.450 - 4.500 uIU/mL [facility] Blood Structure of left upper limb / Unknown 10/14/2024 8:34 AM EDT 10/14/2024 Comment:Blood Release to [facility] (AMBULATORY) - 10/15/2024 6:06 AM EDT Performed at: [address] [place] [address] [id number] Transportation Analyst: Christ Alvarez PhD, Phone: [phone] us Juan Hameed MD LAB BLOOD ORDERABLES Final Resul t Performing Organization Address [facility] Co de Phone Number [facility]) [address] [place] [address], [facility] [address] [place] [address], * T4, Free (10/14/2024 8:34 AM EDT) [facility] Free T4 1.41 0.82 - 1.77 ng/dL [facility] Blood Structure of left upper limb / Unknown 10/14/2024 8:34 AM EDT 10/14/2024 Comment:Blood Release to [facility] ([facility]) - 10/15/2024 6:06 AM EDT Performed at: [address] [place] [id number] Transportation Analyst: Christ Alvarez PhD, Phone: [phone] us Juan Hameed MD LAB BLOOD ORDERABLES Final Resul t Performing Organization Address City/[facility]/ZIP Co de Phone Number [facility]) [address] [place] [id number], [facility] [address] [place], [place] [id number], [place] [phone] * (ABNORMAL) POCT SARS-CoV-2 + Flu Antigen CELENA (09/20/2024 3:33 PM EDT) [facility] SARS Antigen Not Detected Not Detected, Presumptive Negative Influenza A Antigen CELENA Not Detected Not Detected Influenza B Antigen CELENA Not Detected Not Detected Internal Control Passed Passed Lot Number [id number] Expiration Date 2025 Swab 09/20/2024 3:33 PM EDT us Aleksandr Hameed MD POINT OF CARE TEST ORDERABLES Final Result * POC Rapid Strep A (09/20/2024 3:33 PM EDT) [facility] Rapid Strep A Screen Negative Negative, VALID, INVALID, Not Performed [facility] Internal Control Passed Passed [facility] Lot Number [id number] [facility] Expiration Date 06/23/2026 [facility] Swab 09/20/2024 3:33 PM EDT us Aleksandr Hameed MD POINT OF CARE TEST ORDERABLES Final Result Performing Organization Address City/[facility]/ZIP Co de Phone Number [facility]
[address] [place] [address], * Hepatitis C Antibody (09/01/2022 2:30 PM EDT) [facility] Hep C Virus Ab Non Reactive Non Reactive [facility] Comment: HCV antibody alone does not differentiate between previously resolved infection and active infection. Equivocal and Reactive HCV antibody results should be followed up with an HCV RNA test to support the diagnosis of active HCV infection. Blood Structure of left upper limb / Unknown 09/01/2022 2:30 PM EDT 09/02/2022 Comment:Blood Release to [facility] torri Thomas [facility] (AMBULATORY) - 09/02/2022 10:07 AM EDT Performed at: [facility] [id number] Transportation Analyst: Christ Alvarez PhD, Phone: [phone] us Juan Hameed MD LAB BLOOD ORDERABLES Final Resul t [facility] (AMBULATORY) [address] [place] [address], [facility] [address] [place] [address], from Last 3 Months or Most Recently Relevant to Health Maintenance Insurance [employer] Care Teams Package Sealer Machine Relationship Specialty Start Date End Date Juan Hameed MD [address] [place] [address] PCP - General Internal Medicine 03/10/18
--- OUTSIDE RECORDS SUMMARY | 2024-10-28 21:08 | XMS_ITS | Encounter Summary ---
Author Organization [facility] Address [address] [place] [address] Care Team Providers Care Local Combination Truck Driver Name Role Phone Juan Hameed MD Primary Care Provider [phone] Reason for Visit * Reason Comments Med Refill Encounter Details Date Type Department Care Team ( Contact Info) Description 10/19/2024 Refill [facility] [address] [place] [address] [place] [phone] Juan Hameed MD [address] [place] [address] [place] [address] Anxiety and depression; Psychophysiological insomnia Social History Tobacco Use Types Packs/Day Years [...] on file documented as of this encounter Plan of Treatment Upcoming Encounters Date Type Department Care Team (Late Contact Info) Description 12/16/2024 8:45 AM EDT Office Visit [facility] [address] [place] [address] [place] [phone] Juan Hameed MD [address] [place] [address] [place] [address] documented as of this encounter Visit Diagnoses Diagnosis Anxiety and depression Psychophysiological insomnia Persistent disorder of initiating or maintaining sleep documented in this encounter Care Teams Local Combination Truck Driver Relationship Specialty Start Date End Date Juan Hameed MD [address] [place] [address] PCP - General Internal Medicine 03/10/18 documented as of this encounter
--- OUTSIDE RECORDS SUMMARY | 2024-10-28 21:08 | XMS_ITS | Encounter Summary ---
Author Organization [facility] Address [address] [place] [address] Care Team Providers Care Breaster Name Role Phone Juan Hameed MD Primary Care Provider [phone] Encounter Details Date Type Department Care Team (Latest Contact Info) Description 10/14/2024 Travel Social History Tobacco Use Types Packs/Day [...] Visit [facility] [address] [place] [address] [place] [address] Juan Hameed MD [address] [place] [address] [place] [address] documented as of this encounter Visit Diagnoses Not on filedocumented in this encounter Care Teams Breaster Relationship Specialty Start Date End Date Juan Hameed MD [address] [place] [address] [place] [address] PCP - General Internal Medicine 12/19/18 documented as of this encounter
--- OUTSIDE RECORDS SUMMARY | 2024-10-28 21:08 | XMS_ITS | Encounter Summary ---
[facility] Organization [facility] Address [address] [place] [address] Care Team Providers Care Side Boss Name Role Phone Juan Hameed MD Primary Care Provider [phone] Encounter Details Date Type Department Care Team (Late st Contact Info) Description 10/17/2024 Results Follow-Up [facility] [address] [place] [address] [place] [address] Juan Hameed MD [address] [place] [address] [place] [address] Social History Tobacco Use Types Packs/Day Years [...] on file documented as of this encounter Miscellaneous Notes * Telephone Encounter - Jody Grubbs MA - 10/17/2024 2:41 PM EDT I have left a vm for patient regarding labs is she has any questions she can call back documented in this encounter Plan of Treatment Upcoming Encounters Date Type Department Care Team (Late st Contact Info) Description 12/16/2024 8:45 AM EDT Office Visit [facility] [address] [place] [address] Juan Hameed MD [address] [place] [address] documented as of this encounter Visit Diagnoses Not on filedocumented in this encounter Care Teams Side Boss Relationship Specialty Start Date End Date Juan Hameed MD [address] [place] [address] PCP - General Internal Medicine 03/10/18 documented as of this encounter
--- OUTSIDE RECORDS SUMMARY | 2024-10-28 21:08 | XMS_ITS | Encounter Summary ---
Author Organization [facility] Address [address] [place] [address] Care Team Providers Care Chain Pegger Name Role Phone Juan Hameed MD Primary Care Provider [phone] Reason for Visit * Reason Comments Med Refill Encounter Details Date Type Department Care Team (Late Contact Info) Description 10/15/2024 Refill [facility] [address] [place] [address] [place] [phone] Juan Hameed MD [address] [place] [address] [place] [address] Acquired hypothyroidism Social History Tobacco Use Types Packs/Day Years [...] Visit [facility] [address] [place] [address] [place] [address] Juan Hamede MD [address] [place] [address] [place] [address] documented as of this encounter Visit Diagnoses Diagnosis Acquired hypothyroidism Unspecified hypothyroidism documented in this encounter Care Teams Chain Pegger Relationship Specialty Start Date End Date Juan Hameed MD [address] [place] [address] PCP - General Internal Medicine 03/10/18 documented as of this encounter
[2024-10-28 21:09] VITALS: BP 124/80; PULSE 79; RESP 16; TEMP 36.7; O2SAT 100; BMI 19.8
--- NOTE | 2024-10-28 21:13 | HMH.EDGENADL ---
Discharge Plan Prescriptions Prescriptions: No Action levothyroxine 75 mcg tablet PO Patient Comments: TAKE 1 TABLET BY MOUTH EVERY DAY IN THE MORNING montelukast 10 mg tablet PO Patient Comments: TAKE 1 TABLET BY MOUTH EVERY DAY AT NIGHT mirtazapine 15 mg tablet PO Patient Comments: TAKE 0.5 TABLETS BY MOUTH EVERY NIGHT fluticasone propionate 50 mcg/actuation spray,suspension intranasal Patient Comments: ADMINISTER 2 SPRAYS INTO THE NOSTRIL(S) DIRECTED BY PROVIDER DAILY. linezolid 600 mg tablet 600 mg PO BID 10 Days Qty: 20 0RF omeprazole 20 mg capsule,delayed release(DR/EC) 20 mg PO DAILY Patient Comments: TAKE 1 CAPSULE BY MOUTH EVERY DAY albuterol sulfate 90 mcg/actuation HFA aerosol inhaler See Rx Instructions .ROUTE .COMPLEX Patient Comments: INHALE 2 PUFFS EVERY 4 (FOUR) HOURS NEEDED FOR SHORTNESS OF AIR OR WHEEZING Rx Instructions: INHALE 2 PUFFS EVERY 4 (FOUR) HOURS NEEDED FOR SHORTNESS OF AIR OR WHEEZING Referrals Follow up/Referrals: Juan Hameed MD [Primary Care Provider, Medical] - See instructions Print Language Print Language: Tongan Discharge ED Provider: Lynn Walls Adult HPI General Stated complaint: Bloody stool Time Seen by Provider: 10/28/24 21:13 Related Data Home Medications ?Medication ?Instructions ?Recorded ?Confirmed albuterol sulfate 90 mcg/actuation See Rx Instructions .Route .COMPLEX 02/16/23 08/04/24 aerosol inhaler omeprazole 20 mg capsule,delayed 20 mg PO DAILY 02/16/23 08/04/24 release fluticasone propionate 50 intranasal 08/04/24 08/04/24 mcg/actuation nasal spray,suspension levothyroxine 75 mcg tablet mcg PO 08/04/24 08/04/24 mirtazapine 15 mg tablet mg PO 08/04/24 08/04/24 montelukast 10 mg tablet mg PO 08/04/24 08/04/24 Previous Rx's ?Medication ?Instructions ?Recorded linezolid 600 mg tablet 600 mg PO BID 10 days #20 tabs 08/12/24 Allergies Allergy/AdvReac Type Severity Reaction Status Date / Time cetirizine (From Zyrtec) Allergy Unknown Rash Verified 08/04/24 13:02 erythromycin base Allergy Unknown RASH/HIVES Verified 08/04/24 13:02 (ERYTHROMYCIN BASE) Penicillins (PENICILLINS) Allergy Unknown I-HIVES Verified 08/04/24 13:02 promethazine (From PHENERGAN) Allergy Unknown HALLUCINATI Verified 08/04/24 13:02 O[facility] Disclaimer: The information contained in this section may have been updated after the patient was seen, as this information can be updated by other users. Medical History GERD (gastroesophageal reflux disease) Hypothyroid Bipolar 1 disorder Anxiety Surgical History History of salpingo-oophorectomy right S/P laparoscopic assisted vaginal hysterectomy (LAVH) Status post endometrial ablation History of bilateral fallopian tube excision History of shoulder surgery left History of dilatation and curettage History of repair of hiatal hernia History of bilateral tubal ligation Family History Other Alcoholism Asthma Cancer Coronary artery disease FHx: mental illness Heart attack Hypertension Substance abuse Thyroid disorder Social History Smoking Status: Never smoker alcohol intake: never substance use type: denies use current occupational status: employed Travel in the last 8 weeks?: None do you feel safe at home: Yes victim of physical abuse: No victim of emotional abuse: No victim of sexual abuse: No Have you lived/traveled outside US in past 30 days?: No Contact w/someone who lives/traveled outside US past 30 days?: No Exposure to someone with infectious disease in past 14 days?: No Do you have a fever (greater than 100.4 F or 38 C)?: No Have you tested positive for COVID-19?: No Exposed to someone with COVID-19 in past 14 days?: No Do you have a sore throat?: No Do you have a cough?: No Do you have any weakness?: No Do you have any diarrhea?: No Are you experiencing any unusual bleeding?: No Do you have any muscle aches/pain?: No Do you have any abdominal pain?: No Are you experiencing loss of taste or smell?: No Other Medical History Have you received the Flu Vaccine for this season: No Have you received the Pneumonia Vaccine: No Physical Exam General General appearance: alert and in no apparent distress Head Head exam: atraumatic, normocephalic and normal inspection Eye Eye exam: Present normal appearance, PERRL and EOMI; Absent scleral icterus ENT ENT exam: Present normal exam and normal external ear exam Neck Neck exam: Present normal inspection and full ROM Chest Chest inspection: Present normal inspection and symmetric chest wall rise Respiratory Respiratory exam: Present normal lung sounds bilaterally; Absent respiratory distress or wheezes Cardiovascular Cardiovascular exam: Present regular rate, normal rhythm and normal heart sounds Abdominal Exam Abdominal exam: Present soft and distention; Absent tenderness, guarding or rebound Extremities Exam Extremities exam: Present normal inspection and full ROM Back Exam Back exam: Present normal inspection and full ROM Neurological Exam Neurological exam: Present alert and oriented X3 Psychiatric Psychiatric exam: Present normal affect and normal mood Skin Skin exam: Present warm and dry Medical Decision Making Medical Records Screening: Per USPSTF and CDC recommendations, given the prevalence of disease in our region, it is our hospital?s policy to screen for HIV and viral Hepatitis for all patients aged 18 and over and those with ongoing risk factors.
--- NOTE | 2024-10-28 22:02 | CT_ITS ---
PROCEDURE INFORMATION: Exam: CTA Abdomen and Pelvis With Contrast Exam date and time: 10/28/2024 10:55 PM Age: 39 years old Clinical indication: Other: Rectal bleeding; Abdominal pain; Other: Lower; Additional info: Rectal bleeding, lower abd pain TECHNIQUE: Imaging protocol: Computed tomographic angiography of the abdomen and pelvis with contrast. Exam focused on the arteries. 3D rendering (Not supervised by radiologist): MIP and/or 3D reconstructed images were created by the technologist. Radiation optimization: All CT scans at this facility use at least one of these dose optimization techniques: automated exposure control; mA and/or kV adjustment per patient size (includes targeted exams where dose is matched to clinical indication); or iterative reconstruction. Contrast material: ISOUVE 370; Contrast volume: 80 ml; Contrast route: INTRAVENOUS (IV); COMPARISON: CT ANGIO ABDOMEN PELVIS 10/28/2024 10:55 PM FINDINGS: Aorta: No aortic aneurysm. No aortic dissection. Celiac trunk and mesenteric arteries: No occlusion or significant stenosis. Renal arteries: No occlusion or significant stenosis. Right iliac arteries: No occlusion or significant stenosis. Left iliac arteries: No occlusion or significant stenosis. Liver: No mass. Gallbladder and biliary ducts: Unremarkable. No calcified stones. No ductal dilation. Pancreas: Unremarkable. No mass. No ductal dilation. Spleen: Unremarkable. No splenomegaly. Adrenal glands: Unremarkable. No mass. Kidneys and ureters: Unremarkable. No solid mass. No hydronephrosis. Stomach and bowel: There is distortion of the anatomy with mass effect at the GE junction region of the stomach. GI tract structures otherwise unremarkable with no evident wall thickening allowing for incomplete distention. No abnormal contrast extravasation to suggest active bleeding. Appendix: Appendix is normal. No evidence of appendicitis. Intraperitoneal space: Unremarkable. No free air. No significant fluid collection. Lymph nodes: Unremarkable. No enlarged lymph nodes. Urinary bladder: Unremarkable. No mass. Reproductive: Hysterectomy. Bones/joints: No acute fracture. Soft tissues: Unremarkable. IMPRESSION: 1. No acute abnormalities of the abdomen and pelvis. Nonemergent findings as above. No CT evidence of active GI tract bleeding. 2. Distorted anatomy with mass effect at the GE junction that may reflect changes related to a Keely fundoplication type procedure. However, if no history of surgery to explain this finding then a developing mass can not be excluded and further assessment with endoscopy may be indicated.
[2024-10-28] MEDS: SODIUM CHLORIDE 0.9% 10ML SYR (RAD ONLY) 10 ML IV (23:02)
[2024-10-28] MEDS: IOPAMIDOL-370 (76%);100ML BOTTLE 80 ML IV (23:02)
[2024-10-28] MEDS: 0.9 % SODIUM CHLORIDE 50 ML VIAL 40 ML IV (23:02)
[2024-10-28 23:37] LABS: Occult Blood,Stool Positive (Negative)
[2024-10-28 23:54] LABS: Hematocrit 33.2 % (37.0-47.0); Hemoglobin 11.1 g/dL (12.2-16.2); Immature Granulocytes % 0.2 %; Mean Corpuscular HGB Conc 33.4 g/dL (31.8-35.4); Mean Corpuscular Hemoglobin 30.2 pg (27.0-31.2); Mean Corpuscular Volume 90.5 fl (81-99); Nucleated Red Blood Cells % 0 %; Platelet Count 197 K/mm3 (142-424); Red Blood Count 3.67 M/mm3 (4.20-5.40); Red Cell Distribution Width-SD 45.7 fL; White Blood Count 6.3 K/mm3 (4.8-10.8)
--- NOTE | 2024-10-29 | ED_ITS ---
<Statement entered by Lynn Walls DO - 10/29/24 01:18> I was consulted by the KHADAR, and we discussed the complexity of problems being addressed. I approve the treatment and management plan for this patient's care in the emergency department, thus performing a substantial portion of the medical decision making. Lynn Walls DO Discharge Plan Disposition Patient Disposition: Home, Self-Care Condition: Good Prescriptions Prescriptions: No Action levothyroxine 75 mcg tablet PO Patient Comments: TAKE 1 TABLET BY MOUTH EVERY DAY IN THE MORNING montelukast 10 mg tablet PO Patient Comments: TAKE 1 TABLET BY MOUTH EVERY DAY AT NIGHT mirtazapine 15 mg tablet PO Patient Comments: TAKE 0.5 TABLETS BY MOUTH EVERY NIGHT fluticasone propionate 50 mcg/actuation spray,suspension intranasal Patient Comments: ADMINISTER 2 SPRAYS INTO THE NOSTRIL(S) DIRECTED BY PROVIDER DAILY. linezolid 600 mg tablet 600 mg PO BID 10 Days Qty: 20 0RF omeprazole 20 mg capsule,delayed release(DR/EC) 20 mg PO DAILY Patient Comments: TAKE 1 CAPSULE BY MOUTH EVERY DAY albuterol sulfate 90 mcg/actuation HFA aerosol inhaler See Rx Instructions .ROUTE .COMPLEX Patient Comments: INHALE 2 PUFFS EVERY 4 (FOUR) HOURS NEEDED FOR SHORTNESS OF AIR OR WHEEZING Rx Instructions: INHALE 2 PUFFS EVERY 4 (FOUR) HOURS NEEDED FOR SHORTNESS OF AIR OR WHEEZING Referrals Follow up/Referrals: Naseem Ronoey II, MD [Staff Physician, Gastroenterology] - See instructions Juan Hameed MD [Primary Care Provider, Medical] - See instructions Activity Restrictions/Add. Instructions Additional Instructions/Restrictions: You were seen for rectal bleeding. Please follow up with GI, you will need to call them to schedule an appointment. Return to the ER if you develop increased bleeding or if you are feeling symptomatic and feelig lightheaded, feel like you are going to pass out or if you have any other acute concerns. Clinical Impressions Clinical Impression: Bright red rectal bleeding Instructions Patient Instructions: DI for Rectal Bleeding Print Language Print Language: Estonian Discharge ED Provider: Lynn Walls General Adult HPI <TIO Crump - Last Filed: 10/29/24 00:09> General Chief complaint: Nausea/Vomiting/Diarrhea Stated complaint: Bloody stool Time Seen by Provider: 10/28/24 21:13 Mode of Arrival: Ambulatory Source of Information: Patient Description of Symptoms (Recalled from ER Triage Doc. by RN): pt presents to the ed for eval of blood in stool that began this AM. Pt reports that first incident occurred this AM with diarrhea and blood tinged stool thinking it was related to hemorrhoids'. Pt reports as the day went on she had multiple different bowel movements with the last one being there was no stool in it, just black blood clots Pt reports history or bleeding ulcers, denies alcohol use or blood thinner use. Pt reports associated lower abd pain and back pain. History of Present Illness HPI narrative: Patient presents with reports of bright red blood per rectum. She reports this morning she had some bright red blood with watery stool. She had another episode of bright red blood mixed with soft stool. Most recently she had passage of blood clots only. She reports a history of hemorrhoids with some rectal bleeding. She does report some rectal pressure. She does have some lower abdominal pain as well. Denies any fevers or vomiting. MD complaint: rectal bleeding Onset (ago): day(s) (1) Location: abdomen Severity: moderate Consistency: intermittent Relieving factors: none Exacerbating factors: none Associated symptoms: denies other symptoms Treatments prior to arrival: none Related Data Home Medications ?Medication ?Instructions ?Recorded ?Confirmed albuterol sulfate 90 mcg/actuation See Rx Instructions .Route .COMPLEX 02/16/23 08/04/24 aerosol inhaler omeprazole 20 mg capsule,delayed 20 mg PO DAILY 08/04/24 release fluticasone propionate 50 intranasal 08/04/24 08/04/24 mcg/actuation nasal spray,suspension levothyroxine 75 mcg tablet mcg PO 08/04/24 08/04/24 mirtazapine 15 mg tablet mg PO 08/04/24 08/04/24 montelukast 10 mg tablet mg PO 08/04/24 08/04/24 Previous Rx's ?Medication ?Instructions ?Recorded linezolid 600 mg tablet 600 mg PO BID 10 days #20 ta bs 08/12/24 Allergies Allergy/AdvReac Type Severity Reaction Status Date / Time cetirizine (From Zyrtec) Allergy Unknown Rash Verified 08/04/24 13:02 erythromycin base Allergy Unknown RASH/HIVES Verified 08/04/24 13:02 (ERYTHROMYCIN BASE) Penicillins (PENICILLINS) Allergy Unknown I-HIVES Verified 08/04/24 13:02 promethazine (From PHENERGAN) Allergy Unknown HALLUCINATI Verified 08/04/24 13:02 ONS [facility] <TIO Crump - Last Filed: 10/29/24 00:09> [facility] Disclaimer: The information contained in this section may have been updated after the patient was seen, as this information can be updated by other users. Medical History GERD (gastroesophageal reflux disease) Hypothyroid Bipolar 1 disorder Anxiety Surgical History History of salpingo-oophorectomy right S/P laparoscopic assisted vaginal hysterectomy (LAVH) Status post endometrial ablation History of bilateral fallopian tube excision History of shoulder surgery left History of dilatation and curettage History of repair of hiatal hernia History of bilateral tubal ligation Family History Other Alcoholism Asthma Cancer Coronary artery disease FHx: mental illness Heart attack Hypertension Substance abuse Thyroid disorder Social History Smoking Status: Never smoker alcohol intake: never substance use type: denies use current occupational status: employed Travel in the last 8 weeks?: None do you feel safe at home: Yes victim of physical abuse: No victim of emotional abuse: No victim of sexual abuse: No Have you lived/traveled outside [place] in past 30 days?: No Contact w/someone who lives/traveled outside [place] past 30 days?: No Exposure to someone with infectious disease in past 14 days?: No Do you have a fever (greater than 100.4 F or 38 C)?: No Have you tested positive for COVID-19?: No Exposed to someone with COVID-19 in past 14 days?: No Do you have a sore throat?: No Do you have a cough?: No Do you have any weakness?: No Do you have any diarrhea?: No Are you experiencing any unusual bleeding?: No Do you have any muscle aches/pain?: No Do you have any abdominal pain?: No Are you experiencing loss of taste or smell?: No Other Medical History Have you received the Flu Vaccine for this season: No Have you received the Pneumonia Vaccine: No <TIO Crump - Last Filed: 10/29/24 00:09> ROS Obtained: Yes Systems reviewed as appropriate & no additional complaints except as documented Physical Exam <TIO Crump - Last Filed: 10/29/24 00:09> General General appearance: alert and in no apparent distress Head Head exam: atraumatic and normocephalic Eye Eye exam: Present normal appearance and EOMI Chest Chest inspection: Present symmetric chest wall rise Respiratory Respiratory exam: Present normal lung sounds bilaterally; Absent wheezes or stridor Cardiovascular Cardiovascular exam: Present regular rate and normal rhythm; Absent systolic murmur Abdominal Exam Abdominal exam: Present soft and tenderness (mild bilateral lower abdominal tenderness ); Absent distention or guarding Rectal Exam Rectal exam: Present normal inspection, normal rectal tone, heme (+) stool and tenderness; Absent hemorrhoids or mass Extremities Exam Extremities exam: Present full ROM Neurological Exam Neurological exam: Present alert and oriented X3 Psychiatric Psychiatric exam: Present normal affect and normal mood Skin Skin exam: Present warm, dry and intact Medical Decision Making <TIO Crump Last Filed: 10/29/24 00:09> Medical Records Screening: Per USPSTF and CDC recommendations, given the prevalence of disease in our region, it is our hospital?s policy to screen for HIV and viral Hepatitis for all patients aged 18 and over and those with ongoing risk factors. Jethro Inquiry Pt receiving controlled substance: No Vital Signs: 10/28/24 21:09 Temperature 98.1 F Temperature Source Oral Pulse Rate [Radial] 79 Respiratory Rate 16 Blood Pressure [Right Arm] 124/80 Blood Pressure Mean [Right Arm] 94 Blood Pressure Position [Right Arm] Sitting 02 Sat by Pulse Oximetry 100 Oxygen Delivery Method Room Air Lab Data Lab Results 10/28/24 23:12: Stool Occult Blood Positive A 10/28/24 23:25: WBC 6.3, RBC 3.67 L, Hgb 11.1 L, Hct 33.2 L, MCV 90.5, MCH 30.2, MCHC 33.4, RDW 13.6, Plt Count 197, MPV 12.0 H, Neut % (Auto) 46.6, Lymph % (Auto) 37.4, [place] % (Auto) 10.2 H, Eos % (Auto) 5.0, Baso % (Auto) 0.6, Neut # (Auto) 2.9, Lymph # (Auto) 2.3, [place] # (Auto) 0.6, Eos # (Auto) 0.3, Baso # (Auto) 0.0, PT 11.4, INR 1.03, Sodium 133 L, Potassium 3.6, Chloride 103, Carbon Dioxide 27, Anion Gap 6.6, BUN 11, Creatinine 0.60, Estimated Creat Clear 114, Estimated GFR 111, Est GFR ( Amer) 135, Glucose 102 H, Calcium 8.2 L, Total Bilirubin 0.4, AST 26, ALT 13, Alkaline Phosphatase 85, Total Protein 6.0 L, Albumin 3.6, Globulin 2.4, Albumin/Globulin Ratio 1.5, Lipase 35, Serum HCG, Qual Negative 10/28/24 23:25 10/28/24 23:25 Orders (Tests/Meds): ED MEDICATIONS Generic Name Dose Route Start Last Admin Trade Name Freq PRN Reason Stop Dose Admin Sodium Chloride 10 ml 10/28/24 22:02 Sodium Chloride 0.9% 10ml Flush Syringe IV 11/27/24 22:01 NEEDED PRN Maintain IV Site Sodium Chloride 10 ml 10/28/24 22:59 10/28/24 23:02 Sodium Chloride 0.9% 10ml Syr (Rad Only) IV 11/27/24 22:58 10 ml NEEDED PRN Administration Maintain IV Site Discontinued Medications Generic Name Dose Route Start Last Admin Trade Name Freq PRN Reason Stop Dose Admin Iopamidol 80 ml 10/28/24 22:59 10/28/24 23:02 Iopamidol-370 (76%);100ml Bottle IV 10/28/24 23:00 80 ml ONCE ONE Administration Sodium Chloride 40 ml 10/28/24 22:59 10/28/24 23:02 0.9 % Sodium Chloride 50 Ml Vial IV 10/28/24 23:00 40 ml ONCE ONE Administration ORDERS Category Date Time Status CT angio abdomen pelvis Stat Cat Scan 10/28/24 22:02 Completed CBC w/Auto Diff [Complete Blood Count Auto Diff] Stat Lab 10/28/24 23:25 Completed CMP [Comprehensive Metabolic Panel] Stat Lab 10/28/24 23:25 Completed HCG Qualitative, Serum Stat Lab 10/28/24 23:25 Completed Lipase Stat Lab 10/28/24 23:25 Completed Occult Blood,Stool Stat Lab 10/28/24 23:12 Completed PT INR [Prothrombin Time INR] Stat Lab 10/28/24 23:25 Completed PTT [Activated Partial Thrombo Time] Stat Lab 10/28/24 23:25 Received Medical Decision Narrative: In summary patient is a 39-year-old who presents the emergency department for evaluation of rectal bleed. Patient is hemodynamically upon arrival, afebrile. Mild lower abdominal tenderness on exam. Differential diagnosis includes anemia, hemorrhoid, diverticulitis, colitis, mass. Initial workup will be conducted with mild anemia, CTA abdomen pelvis consistent with prior surgical history. Patient discharged home with instructions to follow-up with GI. Instructed to return to the ER for any increased amount of bleeding. <Lynn Walls, DO - Last Filed: 10/29/24 01:18> Vital Signs: 10/28/24 21:09 Temperature 98.1 F Temperature Source Oral Pulse Rate [Radial] 79 Respiratory Rate 16 Blood Pressure [Right Arm] 124/80 Blood Pressure Mean [Right Arm] 94 Blood Pressure Position [Right Arm] Sitting 02 Sat by Pulse Oximetry 100 Oxygen Delivery Method Room Air Lab Data Lab results reviewed: Yes I reviewed the patient's lab results. Lab Results 10/28/24 23:12: Stool Occult Blood Positive A 10/28/24 23:25: WBC 6.3, RBC 3.67 L, Hgb 11.1 L, Hct 33.2 L, MCV 90.5, MCH 30.2, MCHC 33.4, RDW 13.6, Plt Count 197, MPV 12.0 H, Neut % (Auto) 46.6, Lymph % (Auto) 37.4, [place] % (Auto) 10.2 H, Eos % (Auto) 5.0, Baso % (Auto) 0.6, Neut # (Auto) 2.9, Lymph # (Auto) 2.3, [place] # (Auto) 0.6, Eos # (Auto) 0.3, Baso # (Auto) 0.0, PT 11.4, INR 1.03, Sodium 133 L, Potassium 3.6, Chloride 103, Carbon Dioxide 27, Anion Gap 6.6, BUN 11, Creatinine 0.60, Estimated Creat Clear 114, Estimated GFR 111, Est GFR ( Amer) 135, Glucose 102 H, Calcium 8.2 L, Total Bilirubin 0.4, AST 26, ALT 13, Alkaline Phosphatase 85, Total Protein 6.0 L, Albumin 3.6, Globulin 2.4, Albumin/Globulin Ratio 1.5, Lipase 35, Serum HCG, Qual Negative Orders (Tests/Meds): ED MEDICATIONS Generic Name Dose Route Start Last Admin Trade Name Freq PRN Reason Stop Dose Admin Sodium Chloride 10 ml 10/28/24 22:02 Sodium Chloride 0.9% 10ml Flush Syringe IV 11/27/24 22:01 NEEDED PRN Maintain IV Site Sodium Chloride 10 ml 10/28/24 22:59 10/28/24 23:02 Sodium Chloride 0.9% 10ml Syr (Rad Only) IV 11/27/24 22:58 10 ml NEEDED PRN Administration Maintain IV Site Discontinued Medications Generic Name Dose Route Start Last Admin Trade Name Freq PRN Reason Stop Dose Admin Iopamidol 80 ml 10/28/24 22:59 10/28/24 23:02 Iopamidol-370 (76%);100ml Bottle IV 10/28/24 23:00 80 ml ONCE ONE Administration Sodium Chloride 40 ml 10/28/24 22:59 10/28/24 23:02 0.9 % Sodium Chloride 50 Ml Vial IV 10/28/24 23:00 40 ml ONCE ONE Administration ORDERS Category Date Time Status CT angio abdomen pelvis Stat Cat Scan 10/28/24 22:02 Completed CBC w/Auto Diff [Complete Blood Count Auto Diff] Stat Lab 10/28/24 23:25 Completed CMP [Comprehensive Metabolic Panel] Stat Lab 10/28/24 23:25 Completed HCG Qualitative, Serum Stat Lab 10/28/24 23:25 Completed Lipase Stat Lab 10/28/24 23:25 Completed Occult Blood,Stool Stat Lab 10/28/24 23:12 Completed PT INR [Prothrombin Time INR] Stat Lab 10/28/24 23:25 Completed PTT [Activated Partial Thrombo Time] Stat Lab 10/28/24 23:25 Received Medical Decision Narrative: In summary patient is a 39-year-old who presents the emergency department for evaluation of rectal bleed. Patient is hemodynamically upon arrival, afebrile. Mild lower abdominal tenderness on exam. Differential diagnosis includes anemia, hemorrhoid, diverticulitis, colitis, mass. Patient's labs were reviewed and interpreted by myself. CBC showed no leukocytosis, stable hemoglobin at 11. CMP was unremarkable. test was negative. HemeOccult positive. CT scan was reviewed and interpreted by myself and showed no active bleeding. On reevaluation, patient continued to be hemodynamically stable. Given patient's unremarkable labs, stable hemoglobin and unremarkable CT scan I felt the patient was appropriate for discharge home. Patient was given a referral to GI and patient was given strict return precautions if her GI bleeding did not resolve or got significantly worse patient started to become symptomatic. Patient understood and at this time patient was discharged home in stable condition. Critical Care <TIO Crump - Last Filed: 10/29/24 00:09> Critical Care Time Critical Care Time: No
[2024-10-29 00:05] LABS: HCG Qualitative, Serum Negative (Negative)
[2024-10-29 00:13] LABS: Albumin Level 3.6 g/dl (3.5-5.0); Chloride 103 mmol/L (98-107); Potassium 3.6 mmoL/L (3.5-5.1); Sodium 133 mmol/L (136-145)
[2024-10-29 00:16] LABS: Alanine Aminotransferase 13 U/L (12-78); Albumin/Globulin Ratio 1.5 (1.1-1.8); Alkaline Phosphatase 85 U/L (38-126); Anion Gap 6.6 mEq/L (5-15); Aspartate Amino Transferase 26 U/L (14-36); Bilirubin,Total 0.4 mg/dl (0.2-1.3); Blood Urea Nitrogen 11 mg/dl (7-17); Calcium 8.2 mg/dl (8.4-10.2); Carbon Dioxide 27 mmol/L (22.0-30.0); Creatinine Clearance Estimated 114 mL/min (50-200); Creatinine,Serum 0.60 mg/dl (0.52-1.04); Estimated Glomerular Filt Rate 111 ml/min (>60); GFR (African American) 135 ML/MIN (>60); Globulin 2.4 g/dL (1.3-3.2); Glucose 102 mg/dl (74-100); Lipase 35 U/L (23-300); Total Protein,Serum 6.0 g/dl (6.3-8.2)
[2024-10-29 00:26] LABS: INR 1.03 (0.9-1.1); Prothrombin Time 11.4 seconds (10.1-12.5)
[2024-10-29 01:05] VITALS: BP 125/85; PULSE 75; RESP 16; TEMP 36.6; O2SAT 98
== END 2024-10-29 01:07 | disposition home or self-care (01) ==
PROVIDERS: Physician Assistant; Emergency Provider Student in an Organized Health Care Education/Training Program; PCP Pediatrics
DX: R10.30 Lower abdominal pain, unspecified (principal); K62.5 Hemorrhage of anus and rectum; M54.50 Low back pain, unspecified
CPT/HCPCS: 74174; 80053; 82272; 83690; 84703; 85025; 85610; 85730; 99284; G0328; Q9967